=== PATIENT | female | born 2005 | race Caucasian/White ===

== ENCOUNTER 2024-08-23 17:34 | Emergency (ER) | payer OTHER ==
[~2024-08-23] VITALS: Ht 170.2 cm; Wt 90.0 kg
[2024-08-23 18:04] LABS: Basophils # (auto) 0 10 ^3/uL (0-0.2); Basophils % (auto) 0.3 % (0.0-2.0); Eosinophils # (auto) 0.1 10 ^3/uL (0-0.8); Lymphocytes # (auto) 2.1 10 ^3/uL (0.4-5.4); Mean Corpuscular Hemoglobin 24.7 pg (28.0-32.0); Monocytes # (auto) 0.5 10 ^3/uL (0-1.3); Neutrophils # (auto) 4.4 10 ^3/uL (1.6-8.6)
[2024-08-23 18:05] LABS: Eosinophils % (auto) 1.1 % (0.0-7.0); Hematocrit 35.3 % (36.0-46.0); Hemoglobin 11.5 g/dL (12.2-16.2); Lymphocytes % (auto) 29.7 % (10.0-50.0); Mean Corpuscular Hgb Conc. 32.6 g/dL (32.0-36.0); Mean Corpuscular Volume 75.8 fL (80.0-100.0); Monocytes % (auto) 6.9 % (0.0-12.0); Platelet Count (auto) 223 10^3/uL (140-450); Red Blood Cells 4.66 10^6/uL (4.0-5.20); Red Cell Distribution Width 15.5 % (11.8-14.3)
[2024-08-23 18:07] LABS: Nucleated Red Blood Cells % 0.1 %
[2024-08-23 18:14] LABS: Chloride 104 mmol/L (98-107); Potassium 3.9 mmol/L (3.5-5.1); Sodium 135 mmol/L (136-145)
[2024-08-23 18:15] LABS: Anion Gap 7 (5-15); Calcium 9.3 mg/dL (8.7-10.4); Carbon Dioxide 24 mmol/L (20-31)
[2024-08-23 18:20] LABS: BUN/Creatinine Ratio 9.9 (10.0-20.0); Blood Urea Nitrogen 7 mg/dL (9-23); Glucose 202 mg/dL (74-106)
[2024-08-23 18:42] LABS: Urine Bacteria FEW /hpf (None Seen); Urine Blood Negative /uL (Negative); Urine Clarity Clear (Clear); Urine Color Light-Yellow (Yellow); Urine Protein, UAD Negative (Negative); Urine Urobilinogen Normal (Negative); Urine WBC 4 /hpf (0 - 5); Urine pH 6.5 (5.0-9.0)
[2024-08-23 18:48] VITALS: PULSE 90; RESP 16; O2SAT 99
--- NOTE | 2024-08-23 18:59 | DVH ---
BIOPHYSICAL PROFILE HISTORY: Left nitro patch, haven't felt baby, 36 wks Comparison Study: None available at time of dictation. TECHNIQUE: Multiple real-time grayscale sonographic images through the gravid uterus of the fetus wi th duplex Doppler color flow and M-mode spectral analysis Findings/ IMPRESSION: Single intrauterine with heart rate of 144 beats per minute. presentation is ce phalic. Placenta is posterior fundal without evidence of previa or abruption. FÁTIMA is 20 cm. Sonogra pher notes breathing and movement..
[2024-08-23] MEDS: SODIUM CHLORIDE 0.9% 1,000 ML IV ONE (19:12)
[2024-08-23 20:21] VITALS: PULSE 94; RESP 14; TEMP 98.5; O2SAT 99
--- NOTE | 2024-08-23 20:21 | ED.PDOC ---
HPI Comments 18-year-old female , currently 36 weeks gestational age, presents to ED for chest pain x2 hours, associated with nausea, dizziness. Patient reports that she left her nitro patch for her blood pressure on for 20 hours instead of 12-14 hours, after which she started developing the symptoms. She also states that she feels like that she has not felt her baby move today. Patient denies any abdominal pain, vaginal bleeding, back pain, shortness of breath. No alleviating or aggravating factors. She states that she has not had any complications with her . Chief Complaint: Chest Pain Time Seen by MD: 17:50 Primary Care Provider: DIEGO Reviewed Notes: Nurses Notes, Medications, Allergies Allergies: Coded Allergies: Cephalexin (Verified Allergy, Unknown, 08/23/24) Mode of Arrival: Ambulatory Past Medical History PAST MEDICAL HISTORY: Denies Surgical History: Denies all surgeries MEDICAL BILLING ASSISTANT History: No Pertinent MEDICAL BILLING ASSISTANT History Social History Smoker: Non-Smoker Alcohol: Denies ETOH Use Drugs: Denies Drug Use Constitutional: denies: chills, diaphoresis, fatigue, fever, malaise, sweats, weakness, others EENTM: denies: blurred vision, double vision, ear bleeding, ear discharge, ear drainage, ear pain, ear ringing, eye pain, eye redness, hearing loss, mouth pain, mouth swelling, nasal discharge, nose bleeding, nose congestion, nose pain, photophobia, tearing, throat pain, throat swelling, voice changes, others Respiratory: denies: cough, hemoptysis, orthopnea, SOB at rest, shortness of breath, SOB with excertion, stridor, wheezing, others Cardiovascular: reports: chest pain, dizzy spells; denies: diaphoresis, Dyspnea on exertion, edema, irregular heart beat, left arm pain, lightheadedness, palpitations, PND, syncope, others Gastrointestinal: reports: nausea; denies: abdomen distended, abdominal pain, blood streaked bowels, constipated, diarrhea, dysphagia, difficulty swallowing, hematemesis, melena, poor appetite, poor fluid intake, rectal bleeding, rectal pain, vomiting, others Genitourinary: denies: abnormal vagina bleeding, burning, dyspareunia, dysuria, flank pain, frequency, hematuria, incontinence, pain, , vagina discharg e, urgency, others Neurological: denies: dizziness, fainting, headache, left sided numbness, left sided weakness, numbness, paresthesia, pre-existing deficit, right sided numbness, right sided weakness, seizure, speech problems, tingling, tremors, weakness, others Musculoskeletal: denies: back pain, gout, joint pain, joint swelling, muscle pain, muscle stiffness, neck pain, others Integumetry: denies: bruises, change in color, change in hair/nails, dryness, laceration, lesions, lumps, rash, wounds, others Allergic/Immunocompromised: denies: Difficulty Healing, Frequent Infections, Hives, Itching, others Hematologic/Lymphatic: denies: anemia, blood clots, easy bleeding, easy bruising, swollen glands, others Endocrine: denies: excessive hunger, excessive sweating, excessive thirst, excessive urination, flushing, intolerance to cold, intolerance to heat, unexplained weight gain, unexplained weight loss, others Psychiatric: denies: anxiety, bipolar disorder, depression, hopeless, panic d isorder, schizophrenia, sleepless, suicidal, others All Other Systems: Reviewed and Negative Physical Exam General Appearance: No Apparent Distress, Normal HEENT: Normal ENT Inspection, Pharynx Normal, TMs Normal Neck: Full Range of Motion, Non-Tender, Normal, Normal Inspection Respiratory: Chest Non-Tender, Lungs Clear, No Accessory Muscle Use, No Respiratory Distress, Normal Breath Sounds Cardiovascular: No Edema, No JVD, No Murmur, No Gallop, Normal Peripheral Pulses, Regular Rate/Rhythm Breast Exam: Deferred Gastrointestinal: No Organomegaly, Non Tender, No Pulsatile Mass, Normal Bowel Sounds, Soft Genitalia: Deferred Pelvic: Deferred Rectal: Deferred Extremities: No calf tenderness, Normal capillary refill, Normal inspection, Normal range of motion, Non-tender, No pedal edema Musculoskeletal : Apperance: Normal Neurologic: Alert, financial aid counselor II-XII nml as Tested, No Motor Deficits, Normal Affect, Normal Mood, No Sensory Deficits Cerebellar Function: Normal Reflexes: Normal Skin: Dry, Normal Color, Warm Lymphatic: No Adenopathy EKG EKG : Pulse Rate (adult): 104 [place]: Normal Cardiac Rhythm: NSR Block: None Hypertrophy: None ST: Normal Was a procedure done? Was a procedure done?: No CP Differential Dx Differential Diagnosis: PA Differential Diagnosis: Angina, Chest Wall Pain, Cholelithiasis, Costochondritis, Esophageal reflux/spasm, Gastritis, Myocardial Infarction Comment Spontaneous X-Ray, Labs, Meds, VS Vital Signs Date Time Temp Pulse Resp B/P (MAP) Pulse Ox O2 Delivery O2 Flow Rate FiO2 08/23/24 18:48 90 18 142/99 (113) 99 08/23/24 18:48 90 16 99 Room Air* 0 21 08/23/24 17:49 104 08/23/24 17:38 98.4 90 16 142/99 (113) 99 Lab Test 08/23/24 18:48 08/23/24 18:33 08/23/24 18:18 08/23/24 17:47 Range/Units Troponin I High Sensitivity < 3 L < 3 L </=34 ng/L POC Glucose 175 H 70-106 mg/dl Urine Color Light-yellow Yellow Urine Clarity Clear Clear Urine pH 6.5 5.0-9.0 Urine Specific [place] 1.020 1.001-1.035 Urine Protein Negative Negative Urine Ketones Negative Negative Urine Blood Negative Negative /uL Urine Nitrite Negative Negative Urine Bilirubin Negative Negative Urine Urobilinogen Normal Negative mg/dL Urine Leukocyte Esterase Negative Negative /uL Urine RBC 1 0 - 4 /hpf Urine WBC 4 0 - 5 /hpf Urine Squamous Epithelial Cells Few <5 /hpf Urine Bacteria Few H None Seen /hpf Urine Glucose 4+ H Normal mg/dL White Blood Count 7.0 4.4-10.8 10^3/uL Red Blood Count 4.66 4.0-5.20 10^6/uL Hemoglobin 11.5 L 12.2-16.2 g/dL Hematocrit 35.3 L 36.0-46.0 % Mean Corpuscular Volume 75.8 L 80.0-100.0 fL Mean Corpuscular Hemoglobin 24.7 L 28.0-32.0 pg Mean Corpuscular Hemoglobin Concent 32.6 32.0-36.0 g/dL Red Cell Distribution Width 15.5 H 11.8-14.3 % Platelet Count 223 140-450 10^3/uL Mean Platelet Volume 8.6 6.9-10.8 fL Neutrophils (%) (Auto) 62.0 37.0-80.0 % Lymphocytes (%) (Auto) 29.7 10.0-50.0 % Monocytes (%) (Auto) 6.9 0.0-12.0 % Eosinophils (%) (Auto) 1.1 0.0-7.0 % Basophils (%) (Auto) 0.3 0.0-2.0 % Neutrophils # (Auto) 4.4 1.6-8.6 10 ^3/uL Lymphocytes # (Auto) 2.1 0.4-5.4 10 ^3/uL Monocytes # (Auto) 0.5 0-1.3 10 ^3/uL Eosinophils # (Auto) 0.1 0-0.8 10 ^3/uL Basophils # (Auto) 0 0-0.2 10 ^3/uL Nucleated Red Blood Cells 0.1 % Sodium Level 135 L 136-145 mmol/L Potassium Level 3.9 3.5-5.1 mmol/L Chloride Level 104 98-107 mmol/L Carbon Dioxide Level 24 20-31 mmol/L Anion Gap 7 5-15 Blood Urea Nitrogen 7 L 9-23 mg/dL Creatinine 0.71 0.550-1.02 mg/dL Glomerular Filtration Rate Calc 125 >90 mL/min BUN/Creatinine Ratio 9.9 L 10.0-20.0 Serum Glucose 202 H 74-106 mg/dL Calcium Level 9.3 8.7-10.4 mg/dL Beta HCG, Quantitative 31721.0 H 1.5-4.2 mIU/mL Current Medications Medications (Trade) Dose Ordered Sig/Gris Route Start Time Stop Time Status Last Admin Sodium Chloride 1,000 ml @ 1,000 mls/hr Q1H ONCE IV 08/23/24 19:00 08/23/24 19:59 DC 08/23/24 19:12 X-Ray, Labs, Meds, VS Comment OB US IMPRESSION: Single intrauterine with heart rate of 144 beats per minute. presentation is cephalic. Placenta is posterior fundal without evidence of previa or abruption. FÁTIMA is 20 cm. Tile Machine Operator notes breathing and movement.. MDM: Patient with history as above presented with chest pain. History obtained from patient. Patient was nontoxic, stable, afebrile, ambulatory, no acute distress. Exam as above. Labs reviewed. CBC showed mild anemia with hemoglobin at 11.5 and hematocrit at 35.3. Urinalysis showed sodium at 135. Troponin x2 were negative. Beta hCG was [address]91. Urinalysis showed few urine bacteria. . Independently reviewed imaging. Ob ultrasound showed single intrauterine with heart rate at 144 beats per minute. No placenta previa or abruption. Reviewed external records. All findings were discussed with the patient. Differential diagnosis considered. Overall presentation is consistent with nonspecific chest pain. Low suspicion for PA, PE, spontaneous . Patient was treated with 1 L normal saline with improvement in symptoms. Patient has been cleared by labor and delivery nurse who did NST and BPP. Patient was reevaluated and vital signs were reviewed. Consideration was given for admission, but the patient was stable for outpatient management. No antibiotics were prescribed for asymptomatic bacteriuria as patient is allergic to Keflex and nitrofurantoin is not indicated. Patient states that she has not outpatient appointment with her OBGYN tomorrow. Disposition: Discussed the need to follow up diagnostics, including incidental findings. Discharged the patient with instructions to obtain outpatient follow up in 1-2 days of today's symptoms and findings, with strict return precautions if patient develops new or worsening symptoms. This medical document was created using the [employer] system. Although this document has been carefully reviewed, there may still be some phonetic and typographical errors, which are due to imperfections of the software program, and do not reflect any compromise in the patient's medical care. Time of 1ST Reevaluation: 20:11 Reevaluation 1ST: Improved Patient Education/Counseling: Diagnosis, Treatment, Prognosis, Need For Follow Up Family Education/Counseling: No Family Present Departure 1 Departure Time of Disposition: 20:12 Impression: Primary Impression: Chest pain Qualified Codes: R07.9 - Chest pain, unspecified Disposition: HOME / SELF CARE / HOMELESS Condition: Fair Critical Care Note Critical Care Time?: No Stability Stability form required: No Heart Score Heart Score: Heart Score Response (Comments) Value History N/A 0 EKG N/A 0 Age N/A 0 Risk Factors N/A 0 Troponin N/A 0 Total 0 LOPEZ MONTOYA PAC Aug 23, 2024 20:21
[2024-08-23] MEDS: ONDANSETRON ODT 4 MG TAB PO ONE (20:59)
[2024-08-23 21:00] VITALS: BP 109/63; PULSE 91; RESP 13; O2SAT 96
--- NOTE | 2024-08-24 10:54 | ECG ---
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
== END 2024-08-23 20:21 | disposition home or self-care (01) ==
LOC: ER 17:34
DX: O26.893 Other specified pregnancy related conditions, third trimester (principal); R10.2 Pelvic and perineal pain; O26.891 Other specified pregnancy related conditions, first trimester; R07.89 Other chest pain; Z88.5 Allergy status to narcotic agent; Z3A.36 36 weeks gestation of pregnancy
CPT/HCPCS: 36415; 76815; 80048; 81001; 82962; 84484; 84702; 85025; 93005; 96360; 99285; J7030; Q0162

== ENCOUNTER 2024-09-06 13:52 | Inpatient (IN) | payer OTHER ==
[~2024-09-06] VITALS: Ht 170.2 cm; Wt 88.9 kg
[2024-09-06] MEDS: SODIUM CHLORIDE 0.9% 1,000 ML IV ONE ×2 (14:00→15:23)
--- NOTE | 2024-09-06 14:07 | ECG ---
[facility] Test Date: 2024-09-06 Test Time: 14:05:26 Pat Name: MICHELINE COX Department: ED Room: Gender: F Vp Informatics: : 2005 Requested By: FANNY BECKER Order Number: [id number] Reading MD: Measurements Intervals [place] Rate: 124 P: 93 [place]: 138 QRS: 126 QRSD: 98 T: 72 QT: 311 QTc: 447 Interpretive Statements Sinus tachycardia Right axis deviation Please click the below link to view image of tracing.
[2024-09-06 14:20] VITALS: PULSE 106; RESP 21; O2SAT 95
[2024-09-06] MEDS: LORazepam 2MG/ML-1ML VIAL IV ONE ×2 (14:25→16:20)
[2024-09-06] MEDS: LORazepam 2MG/ML-1ML VIAL ONE ×2 (14:36→16:20)
[2024-09-06 14:41] LABS: Basophils # (auto) 0 10 ^3/uL (0-0.2); Eosinophils # (auto) 0.1 10 ^3/uL (0-0.8); Hematocrit 34.3 % (36.0-46.0); Lymphocytes # (auto) 0.9 10 ^3/uL (0.4-5.4); Mean Corpuscular Hemoglobin 24.7 pg (28.0-32.0); Monocytes # (auto) 0.4 10 ^3/uL (0-1.3); Neutrophils # (auto) 7.5 10 ^3/uL (1.6-8.6); Red Cell Distribution Width 16.3 % (11.8-14.3); White Blood Cell 8.9 10^3/uL (4.4-10.8)
[2024-09-06] MEDS: LABETALOL HCL 20 MG/4 ML VL IV ONE ×2 (14:41→15:23)
[2024-09-06 14:43] LABS: Basophils % (auto) 0.1 % (0.0-2.0); Eosinophils % (auto) 1.1 % (0.0-7.0); Hemoglobin 11.3 g/dL (12.2-16.2); Lymphocytes % (auto) 10.3 % (10.0-50.0); Mean Corpuscular Hgb Conc. 32.8 g/dL (32.0-36.0); Mean Corpuscular Volume 75.4 fL (80.0-100.0); Monocytes % (auto) 4.9 % (0.0-12.0); Neutrophils % (auto) 83.6 % (37.0-80.0); Platelet Count (auto) 211 10^3/uL (140-450); Red Blood Cells 4.55 10^6/uL (4.0-5.20)
[2024-09-06 14:46] LABS: Chloride 108 mmol/L (98-107); Potassium 4.2 mmol/L (3.5-5.1); Sodium 141 mmol/L (136-145)
[2024-09-06 14:47] LABS: Anion Gap 16 (5-15); Carbon Dioxide 17 mmol/L (20-31)
--- NOTE | 2024-09-06 14:49 | ED.PDOC ---
History of Present Illness HPI Comments 18Y F presents to ED via EMS s/p seizure. Pt had seizure that was witnessed by friend and EMS. Pt gave 4 days ago and was discharged yesterday from [facility]. Per EMS, pt had HTN during . Pt also has DM but does not take any medications. Upon ED arrival, O2sat was 90% on RA. Allergies include Cephalexin. Patient was initially postictal, however subsequently was alert and conversant, however this was prior to my evaluation. Patient had a 2nd witnessed seizure shortly after arrival in the ED, resolved with IV Ativan. Patient was subsequently postictal, so no additional history is currently available. Chief Complaint: Seizure Time Seen by MD: 14:25 Primary Care Provider: DIEGO Reviewed Notes: Medications, Allergies Allergies: Coded Allergies: Cephalexin (Verified Allergy, Unknown, 08/23/24) Information Source: Patient, Emergency Med Personnel, [facility] Medical Record Mode of Arrival: EMS Severity: Moderate Timing: Hours Duration: Since onset Prehospital treatment: 12 Lead EKG Past Medical History PAST MEDICAL HISTORY: DM, HTN Surgical History: Denies all surgeries STAFF DEVELOPMENT EDUCATOR History: No Pertinent STAFF DEVELOPMENT EDUCATOR History Family History Family History: Unknown Social History Smoker: Non-Smoker Alcohol: Denies ETOH Use Drugs: Denies Drug Use Lives In: Home Constitutional: denies: chills, diaphoresis, fatigue, fever, malaise, sweats, weakness, others EENTM: denies: blurred vision, double vision, ear bleeding, ear discharge, ear drainage, ear pain, ear ringing, eye pain, eye redness, hearing loss, mouth pain, mouth swelling, nasal discharge, nose bleeding, nose congestion, nose pain, photophobia, tearing, throat pain, throat swelling, voice changes, others Respiratory: denies: cough, hemoptysis, orthopnea, SOB at rest, shortness of breath, SOB with excertion, stridor, wheezing, others Cardiovascular: denies: chest pain, dizzy spells, diaphoresis, Dyspnea on exertion, edema, irregular heart beat, left arm pain, lightheadedness, palpitations, PND, syncope, others Gastrointestinal: denies: abdomen distended, abdominal pain, blood streaked bowels, constipated, diarrhea, dysphagia, difficulty swallowing, hematemesis, melena, nausea, poor appetite, poor fluid intake, rectal bleeding, rectal pain, vomiting, others Genitourinary: denies: abnormal vagina bleeding, burning, dyspareunia, dysuria, flank pain, frequency, hematuria, incontinence, pain, , vagina discharge, urgency, others Neurological: denies: dizziness, fainting, headache, left sided numbness, left sided weakness, numbness, paresthesia, pre-existing deficit, right sided numbness, right sided weakness, seizure, speech problems, tingling, tremors, weakness, others Musculoskeletal: denies: back pain, gout, joint pain, joint swelling, muscle pa in, muscle stiffness, neck pain, others Integumetry: denies: bruises, change in color, change in hair/nails, dryness, laceration, lesions, lumps, rash, wounds, others Allergic/Immunocompromised: denies: Difficulty Healing, Frequent Infections, Hives, Itching, others Hematologic/Lymphatic: denies: anemia, blood clots, easy bleeding, easy bruising, swollen glands, others Endocrine: denies: excessive hunger, excessive sweating, excessive thirst, excessive urination, flushing, intolerance to cold, intolerance to heat, unexplained weight gain, unexplained weight loss, others Psychiatric: denies: anxiety, bipolar disorder, depression, hopeless, panic disorder, schizophrenia, sleepless, suicidal, others All Other Systems: Reviewed and Negative Physical Exam General Appearance: No Apparent Distress HEENT: PERRL/EOMI Neck: Full Range of Motion, Non-Tender, Normal Inspection, Supple Respiratory: Lungs Clear, No Respiratory Distress, Normal Breath Sounds Cardiovascular: No Edema, No JVD, Tachycardia Breast Exam: Deferred Gastrointestinal: Non Tender, Soft Genitalia: Deferred Pelvic: Deferred Rectal: Deferred Extremities: Normal inspection, Normal range of motion, Non-tender, No pedal edema Neurologic: Other (Postictal. Moves all extremities. No facial asymmetry. No gross focal deficit.) Cerebellar Function: Unable to Test Reflexes: NOT DONE Skin: Dry, Normal Color, Warm Lymphatic: NOT DONE Was a procedure done? Was a procedure done?: No EKG EKG : Comments Sinus tach, rate 124, normal intervals, right axis deviation, normal QRS, nonspecific T changes Differential Dx Considerations may include: New onset seizure, hypoxia, hypoglycemia, CVA, TIA, intracranial hemorrhage, mass lesion, eclampsia, PE, arrhythmia, among others. X-Ray, Labs, Meds, VS Vital Signs Date Time Temp Pulse Resp B/P (MAP) Pulse Ox O2 Delivery O2 Flow Rate FiO2 09/06/24 16:30 116 26 159/90 (113) 99 09/06/24 16:06 194/117 09/06/24 16:03 12 26 194/117 (142) 97 09/06/24 15:30 105 25 179/110 (133) 97 09/06/24 15:23 96 176/107 09/06/24 15:21 107 25 176/107 (130) 97 09/06/24 15:07 99 32 169/101 (123) 87 09/06/24 14:41 116 173/84 09/06/24 14:30 111 37 173/94 (120) 87 09/06/24 14:20 106 21 95 Nasal Cannula* 3 32 09/06/24 14:18 126 21 171/97 (121) 91 09/06/24 14:05 124 09/06/24 13:58 99.2 108 16 161/98 (119) 98 Lab Test 09/06/24 15:43 09/06/24 14:22 Range/Units Troponin I High Sensitivity 55 *H 40 *H </=34 ng/L White Blood Count 8.9 4.4-10.8 10^3/uL Red Blood Count 4.55 4.0-5.20 10^6/uL Hemoglobin 11.3 L 12.2-16.2 g/dL Hematocrit 34.3 L 36.0-46.0 % Mean Corpuscular Volume 75.4 L 80.0-100.0 fL Mean Corpuscular Hemoglobin 24.7 L 28.0-32.0 pg Mean Corpuscular Hemoglobin Concent 32.8 32.0-36.0 g/dL Red Cell Distribution Width 16.3 H 11.8-14.3 % Platelet Count 211 140-450 10^3/uL Mean Platelet Volume 8.1 6.9-10.8 fL Neutrophils (%) (Auto) 83.6 H 37.0-80.0 % Lymphocytes (%) (Auto) 10.3 10.0-50.0 % Monocytes (%) (Auto) 4.9 0.0-12.0 % Eosinophils (%) (Auto) 1.1 0.0-7.0 % Basophils (%) (Auto) 0.1 0.0-2.0 % Neutrophils # (Auto) 7.5 1.6-8.6 10 ^3/uL Lymphocytes # (Auto) 0.9 0.4-5.4 10 ^3/uL Monocytes # (Auto) 0.4 0-1.3 10 ^3/uL Eosinophils # (Auto) 0.1 0-0.8 10 ^3/uL Basophils # (Auto) 0 0-0.2 10 ^3/uL Nucleated Red Blood Cells 0.0 % Sodium Level 141 136-145 mmol/L Potassium Level 4.2 3.5-5.1 mmol/L Chloride Level 108 H 98-107 mmol/L Carbon Dioxide Level 17 L 20-31 mmol/L Anion Gap 16 H 5-15 Blood Urea Nitrogen 15 9-23 mg/dL Creatinine 1.74 H 0.550-1.02 mg/dL Glomerular Filtration Rate Calc 43 >90 mL/min BUN/Creatinine Ratio 8.6 L 10.0-20.0 Serum Glucose 239 H 74-106 mg/dL Calcium Level 9.0 8.7-10.4 mg/dL Magnesium Level 2.2 1.6-2.6 mg/dL Total Bilirubin 0.4 0.2-1.0 mg/dL Direct Bilirubin 0.1 <0.3 mg/dL Aspartate Amino Transferase (AST) 18 13-40 U/L Alanine Aminotransferase (ALT) 14 7-40 U/L Alkaline Phosphatase 188 H 46-116 U/L Lactate Dehydrogenase 262 H 120-246 U/L B-Type Natriuretic Peptide 474.73 0-100 pg/mL Total Protein 6.1 5.7-8.2 g/dL Albumin 3.4 3.2-4.8 g/dL Current Medications Medications (Trade) Dose Ordered Sig/Gris Route Start Time Stop Time Status Last Admin Sodium Chloride 1,000 ml @ 1,000 mls/hr Q1H ONCE IV 09/06/24 14:00 09/06/24 14:59 DC 09/06/24 15:23 Labetalol HCl (Labetalol HCl) 5 mg ONCE ONCE IV 09/06/24 14:45 09/06/24 14:46 DC 09/06/24 14:41 Lorazepam (Ativan Inj) 2 mg ONCE ONCE IV 09/06/24 14:45 09/06/24 14:46 DC 11/17/24 14:25 Labetalol HCl (Labetalol HCl) 10 mg ONCE ONCE IV 09/06/24 15:15 09/06/24 15:16 DC 09/06/24 15:23 Levetiracetam 100 ml @ 400 mls/hr ONCE ONCE IV 09/06/24 15:30 09/06/24 15:56 DC 09/06/24 16:10 Hydralazine HCl (Apresoline Injection) 10 mg ONCE ONCE IV 09/06/24 16:00 09/06/24 16:02 DC 09/06/24 16:06 Lorazepam (Ativan Inj) 2 mg ONCE ONCE IV 09/06/24 16:00 09/06/24 16:02 DC 09/06/24 16:20 Magnesium Sulfate/ Dextrose 100 ml @ 100 mls/hr Q1H IV 09/06/24 16:15 09/06/24 20:14 09/06/24 17:32 PROCEDURE(s): HWOCT - HEAD WITHOUT CONTRAST REASON: seizure ORDER NUMBER(s): [id number], ACCESSION NUMBER(s): [id number] EXAM: CT HEAD WITHOUT CONTRAST INDICATION: seizure TECHNIQUE: CT of the head without intravenous contrast. Radiation Dose Information: CT Dose: CTDI volume is 32.53 mGy. Dose-length product is 2499.78 mGy*cm The dose indicators for CT are the volume Computed Tomography (CT) Dose Index (CTDIvol) and the Dose Length Product (DLP), and are measured in units of mGy and mGy-cm, respectively. These indicators are not patient dose, but values generated from the CT scanner acquisition factors. The report includes radiation exposure data for exposures received during this examination. COMPARISON: None FINDINGS: There is no evidence of acute intracranial hemorrhage, extra-axial collection, mass effect, midline shift, herniation or hydrocephalus. The ventricles, sulci and cisterns are age appropriate. The nciole-white differentiation is intact. Patchy periventricular and subcortical white matter hypoattenuation is nonspecific but may be related to small vessel ischemic disease. The visualized paranasal sinuses and mastoid air cells are clear. The surrounding soft tissues and osseous structures are unremarkable. IMPRESSION: 1. No acute intracranial hemorrhage. 2. No findings of intracranial mass. 3. No territorial ischemia. EDURE(s): CTACH - CT ANGIO CHEST CONTRAST REASON: r/o PE ORDER NUMBER(s): [id number], ACCESSION NUMBER(s): [id number] INDICATION: r/o PE COMPARISON: NO PRIOR CTAS OF THE CHEST. TECHNIQUE: Multidetector CTA of the chest was performed of the chest with 100 cc of intravenous contrast. PULMONARY ANGIOGRAPHY PROTOCOL was utilized using a bolus-tracking technique centered on the main pulmonary artery. Axial, coronal and sagittal multiplanar and MIP reformats were performed. Radiation Dose Information: CT Dose: CTDI volume is 25.81 mGy. Dose-length product is 2499.78 mGy*cm IV contrast use however type and amount given not indicated. The dose indicators for CT are the volume Computed Tomography (CT) Dose Index (CTDIvol) and the Dose Length Product (DLP), and are measured in units of mGy and mGy-cm, respectively. These indicators are not patient dose, but values generated from the CT scanner acquisition factors. The report includes radiation exposure data for exposures received during this examination. Findings: Suboptimal opacification of pulmonary artery. There are no large filling defects in the main pulmonary artery or left or right pulmonary arteries and no saddle embolus seen. Lower neck: Normal thyroid. Lungs: Small bilateral pleural effusions. Airspace disease posterior costophrenic angle on the left Heart/Vascular Structures: Normal heart size. Normal caliber and enhancement of the aorta. Lymph Nodes: No adenopathy Pleura: No pleural effusion or significant pneumothorax. Musculoskeletal: No acute osseous abnormality. Upper abdomen: Limited portions of the upper abdomen are unremarkable. IMPRESSION: 1. No pulmonary embolism. 2.. No findings to suggest pulmonary artery hypertension. 3. Suboptimal opacification of pulmonary arteries. 4. Airspace disease left posterior costophrenic angle. 5. Small bilateral pleural effusions 2. No acute intrathoracic abnormality. EDURE(s): CS2 - CERVICAL WITHOUT CONTRAST REASON: SEIZURE ORDER NUMBER(s): [id number], ACCESSION NUMBER(s): [id number] EXAM: CT CERVICAL WITHOUT CONTRAST INDICATION: SEIZURE EXAM DATE: 09/06/2024 02:52 PM COMPARISON: None TECHNIQUE: Multiple axial CT images of the cervical spine were obtained using bone algorithm. Axial and coronal reformatting was done. Bone and soft tissue windows were reviewed. Radiation Dose Information: CT Dose: CTDI volume is 26 mGy. Dose-length product is 2500 mGy*cm FINDINGS: The cervical alignment is intact. No acute cervical spine fracture is identified. The vertebral body heights are intact. No suspicious osseous lesions are identified. No significant degenerative changes are identified. There is no prevertebral soft tissue swelling. IMPRESSION: 1. No evidence of acute cervical spine fracture or traumatic malalignment. 2. All CT scans at this medical facility are performed using dose modulation techniques as appropriate to a performed exam including the following: Automated exposure control was utilized; adjustment of the MA and/or KV according to patient size; and use of iterative reconstruction technique. X-Ray, Labs, Meds, VS Comment 18-year-old female with a history of -induced hypertension and diabetes status post 4 days ago presenting with multiple seizures Vitals remarkable for heart rate 108, BP 161/98, oxygen saturation 91% on room air Exam remarkable for tachycardia and postictal state EKG sinus tach, right axis deviation, nonspecific T changes CT head remarkable CT C-spine CTA chest IMPRESSION: 1. No pulmonary embolism. 2.. No findings to suggest pulmonary artery hypertension. 3. Suboptimal opacification of pulmonary arteries. 4. Airspace disease left posterior costophrenic angle. 5. Small bilateral pleural effusions 2. No acute intrathoracic abnormality. CBC unremarkable, basic metabolic panel remarkable for CO2 17, creatinine 1.74, glucose 239 Troponin 40 UA, urine drug screen and BNP pending Patient treated with the following in the ED: Placed on seizure precautions, 1L 0.9 normal saline IV bolus, Ativan 2 mg IV for witnessed seizure, labetalol 5 mg IV for hypertension, labetalol 10 mg IV for persistent hypertension, Keppra 1 g IV On re-evaluation patient is somnolent but arousable. Heart rate is 116, blood pressure 173/84, oxygen saturation 95% on 3 L nasal cannula Plan is to admit the patient for blood pressure and seizure control, airline security representative and Cardiology evaluations. Case discussed with Dr. Aranda, who will consult. Agreed with current treatment, requested adding LFTs, urine creatinine ratio and LDH. Discussed with Dr. Estevez, who will provide Cardiology consult. No new intervention at this time. Time of 1ST Reevaluation: 14:55 Reevaluation 1ST: Unchanged Time of 2ND Reevaluation: 15:24 Reevaluation 2ND: Improved Patient Education/Counseling: Diagnosis, Treatment Family Education/Counseling: No Family Present Departure 1 Departure Time of Disposition: 15:24 Impression: Primary Impression: Elevated troponin Additional Impression: Eclampsia added to pre-existing hypertension Disposition: 09 ADMITTED INPATIENT Admit to: ICU Condition: Guarded Critical Care Note Critical Care Time?: Yes (35 min-critical care time only) Critical care comment: critical care time including multiple bedside re-evaluations, review of lab and imaging studies, and discussion of the case with the admitting provider. Patient is high risk for hemodynamic, neurologic and/or respiratory decompensation. Stability Stability form required: No Heart Score Heart Score: Heart Score Response (Comments) Value History N/A 0 EKG N/A 0 Age N/A 0 Risk Factors N/A 0 Troponin N/A 0 Total 0 I personally scribed for FANNY LOYD MD ([email or web address]) on 09/06/24 at 14:49. Electronically submitted by Jeanne Denton ([employer]). I personally scribed for FANNY LOYD MD ([email or web address]) on 09/06/24 at 16:05. Electronically submitted by Jeanne Denton ([employer]). FANNY LOYD MD Sep 06, 2024 14:49
[2024-09-06 14:52] LABS: BUN/Creatinine Ratio 8.6 (10.0-20.0); Blood Urea Nitrogen 15 mg/dL (9-23); Glucose 239 mg/dL (74-106)
[2024-09-06] MEDS: IOHEXOL 350 MG/ML 100ML IJ ONE (15:21)
--- NOTE | 2024-09-06 15:24 | [facility] ---
EXAM: CT HEAD WITHOUT CONTRAST INDICATION: seizure TECHNIQUE: CT of the head without intravenous contrast. Radiation Dose Information: CT Dose: CTDI volume is 32.53 mGy. Dose-length product is 2499.78 mGy*cm The dose indicators for CT are the volume Computed Tomography (CT) Dose Index (CTDIvol) and the Dose Length Product (DLP), and are measured in units of mGy and mGy-cm, respectively. These indicators are not patient dose, but values generated from the CT scanner acquisition factors. The report includes radiation exposure data for exposures received during this examination. COMPARISON: None FINDINGS: There is no evidence of acute intracranial hemorrhage, extra-axial collection, mass effect, midline s hift, herniation or hydrocephalus. The ventricles, sulci and cisterns are age appropriate. The nicole-white differentiation is intact. Patchy periventricular and subcortical white matter hypoattenuation is nonspecific but may be related to small vessel ischemic disease. The visualized paranasal sinuses and mastoid air cells are clear. The surrounding soft tissues and osseous structures are unremarkable. IMPRESSION: 1. No acute intracranial hemorrhage. 2. No findings of intracranial mass. 3. No territorial ischemia.
--- NOTE | 2024-09-06 15:34 | [facility] ---
INDICATION: r/o PE COMPARISON: NO PRIOR CTAS OF THE CHEST. TECHNIQUE: Multidetector CTA of the chest was performed of the chest with 100 cc of intravenous contr ast. PULMONARY ANGIOGRAPHY PROTOCOL was utilized using a bolus-tracking technique centered on the alena n pulmonary artery. Axial, coronal and sagittal multiplanar and MIP reformats were performed. Radiation Dose Information: CT Dose: CTDI volume is 25.81 mGy. Dose-length product is 2499.78 mGy*cm IV contrast use however type and amount given not indicated. The dose indicators for CT are the volume Computed Tomography (CT) Dose Index (CTDIvol) and the Dose Length Product (DLP), and are measured in units of mGy and mGy-cm, respectively. These indicators are not patient dose, but values generated from the CT scanner acquisition factors. The report includes radiation exposure data for exposures received during this examination. Findings: Suboptimal opacification of pulmonary artery. There are no large filling defects in the main pulmonar y artery or left or right pulmonary arteries and no saddle embolus seen. Lower neck: Normal thyroid. Lungs: Small bilateral pleural effusions. Airspace disease posterior costophrenic angle on the left Heart/Vascular Structures: Normal heart size. Normal caliber and enhancement of the aorta. Lymph Nodes: No adenopathy Pleura: No pleural effusion or significant pneumothorax. Musculoskeletal: No acute osseous abnormality. Upper abdomen: Limited portions of the upper abdomen are unremarkable. IMPRESSION: 1. No pulmonary embolism. 2.. No findings to suggest pulmonary artery hypertension. 3. Suboptimal opacification of pulmonary arteries. 4. Airspace disease left posterior costophrenic angle. 5. Small bilateral pleural effusions 2. No acute intrathoracic abnormality.
--- NOTE | 2024-09-06 15:54 | [facility] ---
EXAM: CT CERVICAL WITHOUT CONTRAST INDICATION: SEIZURE EXAM DATE: 09/06/2024 02:52 PM COMPARISON: None TECHNIQUE: Multiple axial CT images of the cervical spine were obtained using bone algorithm. Axial a nd coronal reformatting was done. Bone and soft tissue windows were reviewed. Radiation Dose Information: CT Dose: CTDI volume is 26 mGy. Dose-length product is 2500 mGy*cm FINDINGS: The cervical alignment is intact. No acute cervical spine fracture is identified. The vertebral body heights are intact. No suspicious osseous lesions are identified. No significant degenerative changes are identified. There is no prevertebral soft tissue swelling. IMPRESSION: 1. No evidence of acute cervical spine fracture or traumatic malalignment. 2. All CT scans at this medical facility are performed using dose modulation techniques as appropriat e to a performed exam including the following: Automated exposure control was utilized; adjustment of the MA and/or KV according to patient size; and use of iterative reconstruction technique.
[2024-09-06] MEDS ORDERED: MAGNESIUM SULFATE 1GM/100ML 100 ML IV SCH (16:00)
[2024-09-06] MEDS: hydrALAZINE HCL 20 MG/ML VL IV ONE ×2 (16:06→20:03)
[2024-09-06] MEDS: levETIRAcetam 1000 mg/100ml 100 ML IV ONE (16:10)
[2024-09-06] MEDS: MAGNESIUM SULFATE 1GM/100ML 100 ML IV SCH (16:15)
[2024-09-06 16:41] LABS: Albumin 3.4 g/dL (3.2-4.8); Bilirubin, Direct 0.1 mg/dL (<0.3); Bilirubin, Total 0.4 mg/dL (0.2-1.0); Magnesium 2.2 mg/dL (1.6-2.6); Total Protein 6.1 g/dL (5.7-8.2)
[2024-09-06 19:30] VITALS: PULSE 121; RESP 21; O2SAT 95
[2024-09-06 21:11] LABS: Urine Bacteria None Seen /hpf (None Seen)
[2024-09-06 21:22] LABS: Urine Blood Negative /uL (Negative); Urine Clarity Clear (Clear); Urine Color Colorless (Yellow); Urine Protein, UAD TRACE (Negative); Urine Urobilinogen Normal (Negative); Urine WBC <1 /hpf (0 - 5); Urine pH 5.5 (5.0-9.0)
[2024-09-06 21:27] LABS: Protein, Urine 44.3 mg/dL (1-14)
[2024-09-06 21:30] LABS: Creatinine, Urine 34.4 mg/dL (30.0-125.0); Urine Protein/Creatinine Ratio 1.29
[2024-09-06] MEDS ORDERED: ONDANSETRON HCL 4 MG/2 ML VIAL IV PRN (22:00)
[2024-09-06] MEDS ORDERED: NITROGLYCERIN 0.4 MG SL TAB SL PRN (22:00)
[2024-09-06] MEDS ORDERED: LORazepam 2MG/ML-1ML VIAL IV PRN (22:00)
[2024-09-06] MEDS ORDERED: MORPHINE SULFATE INJ 2 MG/ml SYRG IV PRN (22:00)
[2024-09-07 04:18] LABS: Basophils # (auto) 0 10 ^3/uL (0-0.2); Basophils % (auto) 0.2 % (0.0-2.0); Eosinophils # (auto) 0.1 10 ^3/uL (0-0.8); Hemoglobin 10.2 g/dL (12.2-16.2); Lymphocytes # (auto) 1.1 10 ^3/uL (0.4-5.4); Monocytes # (auto) 0.5 10 ^3/uL (0-1.3); Neutrophils # (auto) 5.6 10 ^3/uL (1.6-8.6); White Blood Cell 7.3 10^3/uL (4.4-10.8)
[2024-09-07 04:20] LABS: Eosinophils % (auto) 1.3 % (0.0-7.0); Hematocrit 30.8 % (36.0-46.0); Mean Corpuscular Hemoglobin 24.9 pg (28.0-32.0); Mean Corpuscular Hgb Conc. 33.3 g/dL (32.0-36.0); Monocytes % (auto) 7.2 % (0.0-12.0); Neutrophils % (auto) 76.3 % (37.0-80.0); Nucleated Red Blood Cells % 0.1 %; Platelet Count (auto) 184 10^3/uL (140-450); Red Blood Cells 4.11 10^6/uL (4.0-5.20); Red Cell Distribution Width 16.5 % (11.8-14.3)
[2024-09-07 04:39] LABS: Alanine Aminotransferase 10 U/L (7-40); Albumin 2.9 g/dL (3.2-4.8); Alkaline Phosphatase 140 U/L (46-116); Anion Gap 9 (5-15); Aspartate Aminotransferase 16 U/L (13-40); Bilirubin, Total 0.5 mg/dL (0.2-1.0); Blood Urea Nitrogen 10 mg/dL (9-23); Calcium 8.1 mg/dL (8.7-10.4); Carbon Dioxide 21 mmol/L (20-31); Chloride 111 mmol/L (98-107); Glucose 165 mg/dL (74-106); Potassium 3.5 mmol/L (3.5-5.1); Sodium 141 mmol/L (136-145)
--- NOTE | 2024-09-07 05:55 | DVHINCON2 ---
Date of service: Sep 07, 2024 Reason for Consultation Seizure History of Present Illness HPI 18y s/p at 38 wk, delivered at outside hospital approx 4 days ago Patient had hypertension the last week of her and was induced. Was not discharged on any HTN meds. 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 Presented to ER with acute seizure, convulsion and postictal confusion. c/o SOB Head CT neg, CTA neg for PE Patient admitted with elevated BP, now controlled with Labetalol and hydralazine. Denies chest pain, headache or scotomata Denies epigastric pain Past Medical History Cardiac: No pertinent Hx Pulmonary: No pertinent Hx Central Nervous System: No pertinent Hx GI: No pertinent Hx Hemotology/Oncology: No pertinent Hx Hepatobiliary: No pertinent Hx Psychiatric: No pertinent Hx Musculoskeletal: No pertinent Hx Rheumotologic: No pertinent Hx Infectious Disease: No peritnent Hx ENT: No pertinent Hx Renal/: No pertinent Hx Endocrine: IDDM Dermatology: No pertinent Hx Past Surgical History: No pertinent Hx Smoker: No Hx (Negative) Alocohol: None Drugs: None Lives with: With family Domestic Violence: Neg Review of Systems Constitutional: No symptom reported Ears, Nose, & Throat: No symptom reported Eyes: No symptom reported Pulmonary/Respiratory: Dyspnea Cardiovascular: Edema Gastrointestinal: No symptom reported Genitourinary: No symptom reported Musculoskeletal: No symptom reported Skin: No symptom reported Psychiatric: No symptom reported Endocrine: No symptom reported Hemotologic/Lymphatic: No symptom reported All Other Systems Neuro: Headache (now resolved) and seizure H&P Exam Vital Signs Vital Signs Date Time Temp Pulse Resp B/P (MAP) Pulse Ox O2 Delivery O2 Flow Rate FiO2 09/07/24 05:00 112 24 136/87 (103) 97 09/06/24 23:00 99.6 99.6 09/06/24 19:30 Nasal Cannula* 4 36 General Appeara: Well developed, Well nourished, Normal Appearance Head Exam: Normal inspection Neck Exam: Normal inspection Eye Exam: bilateral eye PERRL Abdominal Exam: Normal bowel sounds, Soft, No tenderness Rectal Exam: Deferred Pelvic Exam: Not done Legs: bilateral leg non-tender Tendon/ Neuro: Normal sensation, Normal motor function 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 Exam: Normal hearing, Normal speech, Other (DTR 3/4, no clonus) DTR Exam: 3+ Knee (R), 3+ Knee (L) Neuro/Mental St: Alert, Oriented Appearance: Appropriate appearance, Appropriate insight Thoughts/Psych: Normal thought pattern Labs/Xrays Labs Test 09/07/24 03:48 09/06/24 21:01 09/06/24 15:43 09/06/24 14:22 Range/Units White Blood Count 7.3 4.4-10.8 10^3/uL Red Blood Count 4.11 4.0-5.20 10^6/uL Hemoglobin 10.2 L 12.2-16.2 g/dL Hematocrit 30.8 #L 36.0-46.0 % Mean Corpuscular Volume 75.0 L 80.0-100.0 fL Mean Corpuscular Hemoglobin 24.9 L 28.0-32.0 pg Mean Corpuscular Hemoglobin Concent 33.3 32.0-36.0 g/dL Red Cell Distribution Width 16.5 H 11.8-14.3 % Platelet Count 184 140-450 10^3/uL Mean Platelet Volume 8.2 6.9-10.8 fL Neutrophils (%) (Auto) 76.3 37.0-80.0 % Lymphocytes (%) (Auto) 15.0 10.0-50.0 % Monocytes (%) (Auto) 7.2 0.0-12.0 % Eosinophils (%) (Auto) 1.3 0.0-7.0 % Basophils (%) (Auto) 0.2 0.0-2.0 % Neutrophils # (Auto) 5.6 1.6-8.6 10 ^3/uL Lymphocytes # (Auto) 1.1 0.4-5.4 10 ^3/uL Monocytes # (Auto) 0.5 0-1.3 10 ^3/uL Eosinophils # (Auto) 0.1 0-0.8 10 ^3/uL Basophils # (Auto) 0 0-0.2 10 ^3/uL Nucleated Red Blood Cells 0.1 % Sodium Level 141 136-145 mmol/L Potassium Level 3.5 3.5-5.1 mmol/L Chloride Level 111 H 98-107 mmol/L Carbon Dioxide Level 21 20-31 mmol/L Anion Gap 9 5-15 Blood Urea Nitrogen 10 9-23 mg/dL Creatinine 1.43 H 0.550-1.02 mg/dL Glomerular Filtration Rate Calc 54 >90 mL/min BUN/Creatinine Ratio 7.0 L 10.0-20.0 Serum Glucose 165 H 74-106 mg/dL Calcium Level 8.1 L 8.7-10.4 mg/dL Total Bilirubin 0.5 0.2-1.0 mg/dL Aspartate Amino Transferase (AST) 16 13-40 U/L Alanine Aminotransferase (ALT) 10 7-40 U/L Alkaline Phosphatase 140 H 46-116 U/L Total Protein 5.0 L 5.7-8.2 g/dL Albumin 2.9 L 3.2-4.8 g/dL Urine Color Colorless Yellow Urine Clarity Clear Clear Urine pH 5.5 5.0-9.0 Urine Specific [place] 1.010 1.001-1.035 Urine Protein Trace H Negative Urine Ketones Negative Negative Urine Blood Negative Negative /uL Urine Nitrite Negative Negative Urine Bilirubin Negative Negative Urine Urobilinogen Normal Negative mg/dL Urine Leukocyte Esterase Negative Negative /uL Urine RBC <1 0 - 4 /hpf Urine WBC <1 0 - 5 /hpf Urine Squamous Epithelial Cells None seen <5 /hpf Urine Bacteria None seen None Seen /hpf Urine Creatinine 34.40 30.0-125.0 mg/dL Urine Protein/Creatinine Ratio 1.29 Urine Glucose 4+ H Normal mg/dL Urine Total Protein 44.3 H 1-14 mg/dL Troponin I High Sensitivity 55 *H </=34 ng/L Magnesium Level 2.2 1.6-2.6 mg/dL Direct Bilirubin 0.1 <0.3 mg/dL Lactate Dehydrogenase 262 H 120-246 U/L B-Type Natriuretic Peptide 474.73 0-100 pg/mL Assessment/Plan Admitting Diagnosis: s/p Eclamptic seizure HTN urgency Elevated serum creatinine Elevated BNP and Troponins Pre existing IDDM (type 1) Plan Recommend start Magnesium Sulfate drip 1gm/hr, keep Mag levels range 4-7 (therapeutic range) x 24hrs Monitor urine output Agree w/ plan to control BP w/ Labetalol and hydralazine as needed No evidence of HELLP syndrome Recommend Cardiology consult due to elevated troponin and BNP, recommend maternal 2D Cardiac Echo r/o peripartum cardiomyopathy 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 Repeat CBC/CMP tomorrow in a.m. Plan discussed with: Patient Date of Service: Sep 07, 2024 Billing Provider: SARI BAILON DO Common Visit Codes: CONSULT ONLY Consultation Codes: [id number] CONSULT <60MIN SARI BAILON DO Sep 07, 2024 05:55
[2024-09-07] MEDS: MAGNESIUM SULFATE 40MG/ML 1,000 ML IV ONE (06:25)
[2024-09-07] MEDS: MAGNESIUM SULFATE 40MG/ML 1,000 ML IV SCH (06:28)
[2024-09-07] MEDS ORDERED: DEXTROSE (50%) 50ML SYRG IV PRN (06:30)
--- NOTE | 2024-09-07 06:35 | DVHHP2 ---
History of Present Illness Reason for Visit: Seizure History of Present Illness 18-year-old female presents for evaluation of a witnessed seizure. Patient currently had a normal delivery four days ago and was discharged yesterday. Patient reportedly had hypertension during her as well as diabetes mellitus. Patient had two witnessed seizures in the emergency department with postictal periods. Currently lethargic but arousable. Denies headache or blurred vision. No oral trauma. No other acute complaints reported. Past Medical History Diabetes mellitus and hypertension Past Surgical History None Family History Noncontributory Smoke: No ALCOHOL: none Drugs: None Lives: with Family Review of Systems Review of Systems Review of systems are currently negative otherwise addressed in HPI. Allergies: Coded Allergies: Cephalexin (Verified Allergy, Unknown, 08/23/24) Medications Current Medications Medications Dose Ordered Sig/Gris Route Start Time Stop Time Status Last Admin Dose Admin Magnesium Sulfate/ Dextrose 100 ml @ 100 mls/hr Q1H IV 09/06/24 16:00 09/06/24 17:59 UNV Hydralazine HCl 10 mg Q6HP PRN IV 09/06/24 22:00 Lorazepam 1 mg Q5MINP PRN IV 09/06/24 22:00 Ondansetron HCl 4 mg Q4HP PRN IV 09/06/24 22:00 Acetaminophen 650 mg Q6HP PRN PO 09/06/24 22:00 Nitroglycerin 0.4 mg Q5MINP PRN SL 09/06/24 22:00 Morphine Sulfate 2 mg Q30M PRN IV 09/06/24 22:00 Magnesium Sulfate 1,000 ml @ 50 mls/hr Q20H IV 09/07/24 06:15 09/07/24 06:28 50 MLS/HR Exam Vital Signs Vital Signs Date Time Temp Pulse Resp B/P (MAP) Pulse Ox O2 Delivery O2 Flow Rate FiO2 09/07/24 05:00 112 24 136/87 (103) 97 09/06/24 23:00 99.6 99.6 09/06/24 19:30 Nasal Cannula* 4 36 Exam Gen: 18-year-old female in mild distress Skin: Warm, dry, normal color and texture, no rash. HEENT: Normocephalic atraumatic, mucous membranes moist and pink. Neck: Cervical and supraclavicular nodes normal without enlargement, trachea is midline, thyroid gland is normal without masses. Pulmonary: Clear to auscultation and percussion bilaterally. Cardiac: Regular rate and rhythm. No murmur Abdomen: Soft, nontender, nondistended, bowel sounds present all 4 quadrants, no guarding, no rigidity, no organomegaly. Extremities: No cyanosis, clubbing, no edema Neuro: Cranial nerves II through XII grossly intact, normal affect and speech, no focal motor deficits. Labs/Xrays ORDERING PHYSICIAN: FANNY LOYD MD PROCEDURE(s): CTACH - CT ANGIO CHEST CONTRAST REASON: r/o PE ORDER NUMBER(s): [id number], ACCESSION NUMBER(s): [id number] INDICATION: r/o PE COMPARISON: NO PRIOR CTAS OF THE CHEST. TECHNIQUE: Multidetector CTA of the chest was performed of the chest with 100 cc of intravenous contrast. PULMONARY ANGIOGRAPHY PROTOCOL was utilized using a bolus-tracking technique centered on the main pulmonary artery. Axial, coronal and sagittal multiplanar and MIP reformats were performed. Radiation Dose Information: CT Dose: CTDI volume is 25.81 mGy. Dose-length product is 2499.78 mGy*cm IV contrast use however type and amount given not indicated. The dose indicators for CT are the volume Computed Tomography (CT) Dose Index (CTDIvol) and the Dose Length Product (DLP), and are measured in units of mGy and mGy-cm, respectively. These indicators are not patient dose, but values generated from the CT scanner acquisition factors. The report includes radiation exposure data for exposures received during this examination. Findings: Suboptimal opacification of pulmonary artery. There are no large filling defects in the main pulmonary artery or left or right pulmonary arteries and no saddle embolus seen. Lower neck: Normal thyroid. Lungs: Small bilateral pleural effusions. Airspace disease posterior costophrenic angle on the left Heart/Vascular Structures: Normal heart size. Normal caliber and enhancement of the aorta. Lymph Nodes: No adenopathy Pleura: No pleural effusion or significant pneumothorax. Musculoskeletal: No acute osseous abnormality. Upper abdomen: Limited portions of the upper abdomen are unremarkable. IMPRESSION: 1. No pulmonary embolism. 2.. No findings to suggest pulmonary artery hypertension. 3. Suboptimal opacification of pulmonary arteries. 4. Airspace disease left posterior costophrenic angle. 5. Small bilateral pleural effusions 2. No acute intrathoracic abnormality. ATED BY: STEPHANIE BOWIE Jr., DO DICTATED DATE/TIME: 09/06/24 1531 ORDERING PHYSICIAN: FANNY LOYD MD PROCEDURE(s): HWOCT - HEAD WITHOUT CONTRAST REASON: seizure ORDER NUMBER(s): [id number], ACCESSION NUMBER(s): [id number] EXAM: CT HEAD WITHOUT CONTRAST INDICATION: seizure TECHNIQUE: CT of the head without intravenous contrast. Radiation Dose Information: CT Dose: CTDI volume is 32.53 mGy. Dose-length product is 2499.78 mGy*cm The dose indicators for CT are the volume Computed Tomography (CT) Dose Index (CTDIvol) and the Dose Length Product (DLP), and are measured in units of mGy and mGy-cm, respectively. These indicators are not patient dose, but values generated from the CT scanner acquisition factors. The report includes radiation exposure data for exposures received during this examination. COMPARISON: None FINDINGS: There is no evidence of acute intracranial hemorrhage, extra-axial collection, mass effect, midline shift, herniation or hydrocephalus. The ventricles, sulci and cisterns are age appropriate. The nicole-white differentiation is intact. Patchy periventricular and subcortical white matter hypoattenuation is nonspecific but may be related to small vessel ischemic disease. The visualized paranasal sinuses and mastoid air cells are clear. The surrounding soft tissues and osseous structures are unremarkable. IMPRESSION: 1. No acute intracranial hemorrhage. 2. No findings of intracranial mass. 3. No territorial ischemia. Labs Test 09/07/24 03:48 09/06/24 21:01 09/06/24 15:43 09/06/24 14:22 Range/Units White Blood Count 7.3 4.4-10.8 10^3/uL Red Blood Count 4.11 4.0-5.20 10^6/uL Hemoglobin 10.2 L 12.2-16.2 g/dL Hematocrit 30.8 #L 36.0-46.0 % Mean Corpuscular Volume 75.0 L 80.0-100.0 fL Mean Corpuscular Hemoglobin 24.9 L 28.0-32.0 pg Mean Corpuscular Hemoglobin Concent 33.3 32.0-36.0 g/dL Red Cell Distribution Width 16.5 H 11.8-14.3 % Platelet Count 184 140-450 10^3/uL Mean Platelet Volume 8.2 6.9-10.8 fL Neutrophils (%) (Auto) 76.3 37.0-80.0 % Lymphocytes (%) (Auto) 15.0 10.0-50.0 % Monocytes (%) (Auto) 7.2 0.0-12.0 % Eosinophils (%) (Auto) 1.3 0.0-7.0 % Basophils (%) (Auto) 0.2 0.0-2.0 % Neutrophils # (Auto) 5.6 1.6-8.6 10 ^3/uL Lymphocytes # (Auto) 1.1 0.4-5.4 10 ^3/uL Monocytes # (Auto) 0.5 0-1.3 10 ^3/uL Eosinophils # (Auto) 0.1 0-0.8 10 ^3/uL Basophils # (Auto) 0 0-0.2 10 ^3/uL Nucleated Red Blood Cells 0.1 % Sodium Level 141 136-145 mmol/L Potassium Level 3.5 3.5-5.1 mmol/L Chloride Level 111 H 98-107 mmol/L Carbon Dioxide Level 21 20-31 mmol/L Anion Gap 9 5-15 Blood Urea Nitrogen 10 9-23 mg/dL Creatinine 1.43 H 0.550-1.02 mg/dL Glomerular Filtration Rate Calc 54 >90 mL/min BUN/Creatinine Ratio 7.0 L 10.0-20.0 Serum Glucose 165 H 74-106 mg/dL Calcium Level 8.1 L 8.7-10.4 mg/dL Total Bilirubin 0.5 0.2-1.0 mg/dL Aspartate Amino Transferase (AST) 16 13-40 U/L Alanine Aminotransferase (ALT) 10 7-40 U/L Alkaline Phosphatase 140 H 46-116 U/L Total Protein 5.0 L 5.7-8.2 g/dL Albumin 2.9 L 3.2-4.8 g/dL Urine Color Colorless Yellow Urine Clarity Clear Clear Urine pH 5.5 5.0-9.0 Urine Specific [place] 1.010 1.001-1.035 Urine Protein Trace H Negative Urine Ketones Negative Negative Urine Blood Negative Negative /uL Urine Nitrite Negative Negative Urine Bilirubin Negative Negative Urine Urobilinogen Normal Negative mg/dL Urine Leukocyte Esterase Negative Negative /uL Urine RBC <1 0 - 4 /hpf Urine WBC <1 0 - 5 /hpf Urine Squamous Epithelial Cells None seen <5 /hpf Urine Bacteria None seen None Seen /hpf Urine Creatinine 34.40 30.0-125.0 mg/dL Urine Protein/Creatinine Ratio 1.29 Urine Glucose 4+ H Normal mg/dL Urine Total Protein 44.3 H 1-14 mg/dL Troponin I High Sensitivity 55 *H </=34 ng/L Magnesium Level 2.2 1.6-2.6 mg/dL Direct Bilirubin 0.1 <0.3 mg/dL Lactate Dehydrogenase 262 H 120-246 U/L B-Type Natriuretic Peptide 474.73 0-100 pg/mL Assessment/Plan Assessment/Plan Assessment Hypertensive encephalopathy Eclampsia Seizure activity Acute kidney injury Elevated troponin Diabetes mellitus Plan Admit the patient to telemetry to the hospitalist OBGYN consult Cardiology consult Echocardiogram pending P.r.n. antihypertensives Continue treatment per orders. Plan discussed with: Patient My Orders Orders - GRISELDA BOND AGACNJose Cruz Procedure Category Date Status Time Hydralazine Injection PHA 09/06/24 In Process (Apresoline Inject 22:00 Lorazepam 2mg/Ml Inj PHA 09/06/24 In Process (Ativan Inj) 22:00 Seizure Precautions YONIS 09/06/[address] 21:47 Admit ADMIT 09/06/24 Transmitted 21:47 Ondansetron Hcl PHA 09/06/24 In Process (Zofran) 22:00 Cardiac DIET 09/07/24 Transmitted Diet-2gna,Lofat,Lochol Breakfast Echo 2d Mode Cardiac US 09/06/24 Logged DOP 21:47 Condition: Fair YONIS 09/06/24 In Process 21:47 Acetaminophen Tablet PHA 09/06/24 In Process (Tylenol Tablet) 22:00 Bedrest With Bathroom YONIS 09/06/24 In Process Privileg 21:47 Nitroglycerin PHA 09/06/24 In Process Sublingual (Ntrostat 22:00 Morphine Sulfate PHA 09/06/24 In Process Injection 22:00 Stat Ekg For Chest YONIS 09/06/24 In Process Pain 21:47 Notify Of Changes [facility] 09/06/24 In Process From Base 21:47 Assurance Manager Insurance For [facility] 09/06/24 In Process 24 Hours 21:47 Emergency Dysrhythmia [facility] 09/06/24 In Process Protocol 21:47 Rhythm Strips Once [facility] 09/06/24 In Process Every Shift 21:47 Oxygen By Nasal RT 09/06/24 Transmitted Cannula 21:47 Date of Service: Sep 06, 2024 Billing Provider: GRISELDA BOND Common Visit Codes: [id number] INP/OBS CARE (HIGH) GRISELDA BOND Sep 07, 2024 06:35
[2024-09-07] MEDS: ACCU-CHEK COMFORT CURVE STRIP VI SCH (06:43)
[2024-09-07] MEDS: InsuLIN REG 1unit/0.01ml Soln (100units/ml) SC SCH (06:45)
--- NOTE | 2024-09-07 07:29 | DVHINCON2 ---
Date of service: Sep 07, 2024 History of Present Illness 18-year-old female presents for evaluation of a witnessed seizure. Patient currently had a normal delivery four days ago and was discharged yesterday. Patient reportedly had hypertension during her as well as diabetes mellitus. Patient had two witnessed seizures in the emergency department with postictal periods. Currently lethargic but arousable. Denies headache or blurred vision. No oral trauma. No other acute complaints reported. Past Medical History Diabetes mellitus and hypertension Past Surgical History None Family History Noncontributory Smoke: No ALCOHOL: none Drugs: None Lives: with Family Past Medical History reviewed Allergies: Coded Allergies: Cephalexin (Verified Allergy, Unknown, 08/23/24) Current Medications Current Medications Medications (Trade) Dose Ordered Sig/Gris Route PRN Reason Start Time Stop Time Status Last Admin Magnesium Sulfate/ Dextrose 100 ml @ 100 mls/hr Q1H IV 09/06/24 16:00 09/06/24 17:59 UNV Magnesium Sulfate/ Dextrose 100 ml @ 100 mls/hr Q1H IV 09/06/24 16:15 09/06/24 20:14 DC 09/06/24 19:35 Hydralazine HCl (Apresoline Injection) 10 mg Q6HP PRN IV SBP>150 09/06/24 22:00 Lorazepam (Ativan Inj) 1 mg Q5MINP PRN IV SEIZURES 09/06/24 22:00 Ondansetron HCl (Zofran) 4 mg Q4HP PRN IV NAUSEA / VOMITING 09/06/24 22:00 Acetaminophen (Tylenol Tablet) 650 mg Q6HP PRN PO PAIN SCALE 1-3 OR TEMP>100.4 09/06/24 22:00 Nitroglycerin (Ntrostat Sublingual) 0.4 mg Q5MINP PRN SL FOR CHEST PAIN 09/06/24 22:00 Morphine Sulfate 2 mg Q30M PRN IV FOR CHEST PAIN 09/06/24 22:00 Magnesium Sulfate 1,000 ml @ 50 mls/hr Q20H IV 09/07/24 06:15 09/07/24 06:28 Diagnostic Test (Pha) (Accu-Chek Comfort Curve T) 1 strip ACHS 09/07/24 07:00 09/07/24 06:43 Insulin Human Regular (InsuLIN R) ACHS SC 09/07/24 07:00 09/07/24 06:45 Dextrose 50 ml UD PRN IV Blood Sugar LESS THAN 60 09/07/24 06:30 Review of Systems not obtained, pt sleeping Vital Signs Vital Signs Date Time Temp Pulse Resp B/P (MAP) Pulse Ox O2 Delivery O2 Flow Rate FiO2 09/07/24 05:00 112 24 136/87 (103) 97 09/06/24 23:00 99.6 99.6 09/06/24 19:30 Nasal Cannula* 4 36 Physical Exam nad s1 s2 rrr ctab soft nt no edema Labs/Diagnostic Data Labs Test 09/07/24 03:48 09/06/24 21:01 09/06/24 15:43 09/06/24 14:22 Range/Units White Blood Count 7.3 4.4-10.8 10^3/uL Red Blood Count 4.11 4.0-5.20 10^6/uL Hemoglobin 10.2 L 12.2-16.2 g/dL Hematocrit 30.8 #L 36.0-46.0 % Mean Corpuscular Volume 75.0 L 80.0-100.0 fL Mean Corpuscular Hemoglobin 24.9 L 28.0-32.0 pg Mean Corpuscular Hemoglobin Concent 33.3 32.0-36.0 g/dL Red Cell Distribution Width 16.5 H 11.8-14.3 % Platelet Count 184 140-450 10^3/uL Mean Platelet Volume 8.2 6.9-10.8 fL Neutrophils (%) (Auto) 76.3 37.0-80.0 % Lymphocytes (%) (Auto) 15.0 10.0-50.0 % Monocytes (%) (Auto) 7.2 0.0-12.0 % Eosinophils (%) (Auto) 1.3 0.0-7.0 % Basophils (%) (Auto) 0.2 0.0-2.0 % Neutrophils # (Auto) 5.6 1.6-8.6 10 ^3/uL Lymphocytes # (Auto) 1.1 0.4-5.4 10 ^3/uL Monocytes # (Auto) 0.5 0-1.3 10 ^3/uL Eosinophils # (Auto) 0.1 0-0.8 10 ^3/uL Basophils # (Auto) 0 0-0.2 10 ^3/uL Nucleated Red Blood Cells 0.1 % Sodium Level 141 136-145 mmol/L Potassium Level 3.5 3.5-5.1 mmol/L Chloride Level 111 H 98-107 mmol/L Carbon Dioxide Level 21 20-31 mmol/L Anion Gap 9 5-15 Blood Urea Nitrogen 10 9-23 mg/dL Creatinine 1.43 H 0.550-1.02 mg/dL Glomerular Filtration Rate Calc 54 >90 mL/min BUN/Creatinine Ratio 7.0 L 10.0-20.0 Serum Glucose 165 H 74-106 mg/dL Calcium Level 8.1 L 8.7-10.4 mg/dL Total Bilirubin 0.5 0.2-1.0 mg/dL Aspartate Amino Transferase (AST) 16 13-40 U/L Alanine Aminotransferase (ALT) 10 7-40 U/L Alkaline Phosphatase 140 H 46-116 U/L Total Protein 5.0 L 5.7-8.2 g/dL Albumin 2.9 L 3.2-4.8 g/dL Urine Color Colorless Yellow Urine Clarity Clear Clear Urine pH 5.5 5.0-9.0 Urine Specific [place] 1.010 1.001-1.035 Urine Protein Trace H Negative Urine Ketones Negative Negative Urine Blood Negative Negative /uL Urine Nitrite Negative Negative Urine Bilirubin Negative Negative Urine Urobilinogen Normal Negative mg/dL Urine Leukocyte Esterase Negative Negative /uL Urine RBC <1 0 - 4 /hpf Urine WBC <1 0 - 5 /hpf Urine Squamous Epithelial Cells None seen <5 /hpf Urine Bacteria None seen None Seen /hpf Urine Creatinine 34.40 30.0-125.0 mg/dL Urine Protein/Creatinine Ratio 1.29 Urine Glucose 4+ H Normal mg/dL Urine Total Protein 44.3 H 1-14 mg/dL Troponin I High Sensitivity 55 *H </=34 ng/L Magnesium Level 2.2 1.6-2.6 mg/dL Direct Bilirubin 0.1 <0.3 mg/dL Lactate Dehydrogenase 262 H 120-246 U/L B-Type Natriuretic Peptide 474.73 0-100 pg/mL Assessment elevated troponin recent delivery eclampsia seizure htn ecg shows SR, RAD pt had sinus tachy but better now creat elevated bnp is elevated check echo to r/o peripartum CM bp control with :labetalol +- hydralazine as needed fu obgyn recs Plan discussed with: Patient GREGORIA BUCIO MD Sep 07, 2024 07:29
[2024-09-07 09:47] VITALS: PULSE 102; RESP 19; O2SAT 95
[2024-09-07] MEDS ORDERED: SOD CHL 0.45% 1,000 ML IV SCH (10:00)
--- NOTE | 2024-09-07 10:25 | DVHPN2 ---
Subjective Patient denies any symptoms at this time. Is slow to respond, probably postictal. Reviewed: Care Plan, H&P, Labs, Medications Changes from previous H/P or p: No Changes General: Per HPI Objective Vitals Vital Signs Date Time Temp Pulse Resp B/P (MAP) Pulse Ox O2 Delivery O2 Flow Rate FiO2 09/07/24 10:16 110 17 140/88 (105) 97 09/07/24 09:47 Nasal Cannula* 4 36 09/06/24 23:00 99.6 99.6 Intake/Output Intake and Output 09/07/24 07:00 Intake Total 400 ml Output Total 2300 ml Balance -1900 ml Intake Oral 0 ml IV Total 400 ml Output Urine Total 2300 ml General Appearance: Alert, Oriented X3, Cooperative, No acute distress HEENT: Atraumatic, PERRLA Lungs: Clear to auscultation, Normal air movement Cardiovascular: Normal S1, Normal S2 Genitourinary: No Apparent Abnormalities Musculoskeletal: Normal sensory function, Normal motor function Neuro: Normal gait, Normal speech Psych/Mental Status: Mental status NL, Mood NL Medications Current Medications Medications Dose Ordered Sig/Gris Route Start Time Stop Time Status Last Admin Dose Admin Magnesium Sulfate/ Dextrose 100 ml @ 100 mls/hr Q1H IV 09/06/24 16:00 09/06/24 17:59 UNV Hydralazine HCl 10 mg Q6HP PRN IV 09/06/24 22:00 Lorazepam 1 mg Q5MINP PRN IV 09/06/24 22:00 Ondansetron HCl 4 mg Q4HP PRN IV 09/06/24 22:00 Acetaminophen 650 mg Q6HP PRN PO 09/06/24 22:00 Nitroglycerin 0.4 mg Q5MINP PRN SL 09/06/24 22:00 Morphine Sulfate 2 mg Q30M PRN IV 09/06/24 22:00 Magnesium Sulfate 1,000 ml @ 50 mls/hr Q20H IV 09/07/24 06:15 09/07/24 06:28 50 MLS/HR Diagnostic Test (Pha) 1 strip ACHS 09/07/24 07:00 09/07/24 06:43 1 STRIP Insulin Human Regular ACHS SC 09/07/24 07:00 09/07/24 06:45 3 UNITS Dextrose 50 ml UD PRN IV 09/07/24 06:30 Labetalol HCl 100 mg Q12HR PO 09/07/24 10:00 Laboratory Results Laboratory Tests 09/07/24 03:48 Chemistry Test 09/06/24 14:22 09/07/24 03:48 09/07/24 09:57 Albumin 3.4 g/dL (3.2-4.8) 2.9 g/dL (3.2-4.8) L Calcium Level 9.0 mg/dL (8.7-10.4) 8.1 mg/dL (8.7-10.4) L Magnesium Level 2.2 mg/dL (1.6-2.6) 2.6 mg/dL (1.6-2.6) Pending Total Protein 6.1 g/dL (5.7-8.2) 5.0 g/dL (5.7-8.2) L Cardiac Markers Test 09/06/24 14:22 B-Type Natriuretic Peptide 474.73 pg/mL (0-100) LFT Test 09/06/24 14:22 09/07/24 03:48 Alanine Aminotransferase (ALT) 14 U/L (7-40) 10 U/L (7-40) Alkaline Phosphatase 188 U/L (46-116) H 140 U/L (46-116) H Aspartate Amino Transferase (AST) 18 U/L (13-40) 16 U/L (13-40) Direct Bilirubin 0.1 mg/dL (<0.3) Total Bilirubin 0.4 mg/dL (0.2-1.0) 0.5 mg/dL (0.2-1.0) HgA1c, TSH Test 09/07/24 03:48 Hemoglobin A1c Pending Urinalysis Test 09/06/24 21:01 Urine Color Colorless (Yellow) Urine Clarity Clear (Clear) Urine pH 5.5 (5.0-9.0) Urine Specific [place] 1.010 (1.001-1.035) Urine Protein Trace (Negative) H Urine Ketones Negative (Negative) Urine Blood Negative /uL (Negative) Urine Nitrite Negative (Negative) Urine Bilirubin Negative (Negative) Urine Urobilinogen Normal mg/dL (Negative) Urine Leukocyte Esterase Negative /uL (Negative) Urine RBC <1 /hpf (0 - 4) Urine WBC <1 /hpf (0 - 5) Urine Squamous Epithelial Cells None seen /hpf (<5) Urine Bacteria None seen /hpf (None Seen) Urine Creatinine 34.40 mg/dL (30.0-125.0) Urine Protein/Creatinine Ratio 1.29 Urine Glucose 4+ mg/dL (Normal) H Urine Total Protein 44.3 mg/dL (1-14) H Labs and/or images reviewed: Labs reviewed by me, Image(s) reviewed by me Assessment/Plan Assessment/Plan Impression: - eclampsia with breakthrough seizures -status post vaginal delivery four days ago -diabetes mellitus -metabolic encephalopathy secondary to breakthrough seizures -acute hypoxic respiratory failure -rule out cardiomyopathy -pulmonary embolism ruled out -acute kidney injury, vasomotor nephropathy Plan: -OBGYN consultation: Recommendations reviewed -continue magnesium drip -cardiology consultation: Recommendations discussed with Dr. Estevez. We will start labetalol 100 mg p.o. twice a day. Diuresis will be held off secondary to lack of echo as well as patient receiving IV contrast and acute kidney injury -p.r.n. IV Ativan as needed for breakthrough seizures -goal blood pressure less than 130 mmHg -continue O2 supplementation to keep saturation greater than 92% -check influenza -regular insulin sliding scale, check A1c -repeat labs and chest x-ray in a.m. -transferred to the DES Total time spent with patient discussing and formulating plan of care: 35 minutes. This medical document was created using an electronic medical record system with [employer] dictation system. Although this document has been carefully reviewed, there may still be some phonetic and typographical errors. These areas are purely typographical due to imperfections of the software programs, and do not reflect any compromise in the patient's medical care. Plan discussed with: Patient, Other (RN) My Orders Orders - AMEE LICONA NP Procedure Category Date Status Time Hemoglobin A1c LAB 09/07/24 In Process 09:50 Labetalol Hcl Tablet PHA 09/07/24 In Process (Normodyne Tablet) 10:00 Rapid Influenza A&B LAB 09/07/24 Logged 09:56 Date of Service: Sep 07, 2024 Billing Provider: AMEE LICONA NP Common Visit Codes: [id number] CARE 30-74 MIN AMEE LICONA NP Sep 07, 2024 10:25
[2024-09-07] MEDS: POTASSIUM EFFERVESENT TAB 25 MEQ PO ONE (10:47)
--- NOTE | 2024-09-07 10:47 | DVHSR ---
APPROVED REPORT EXAM: Two-dimensional and M-mode echocardiogram with Doppler and color Doppler. Blood Pressure: 136/87 mmHg INDICATION EF RISK FACTORS Height: 67, Weight: 169 DIMENSIONS LVDd4.6 (3.8-5.7cm)LA (2D)4.2 (1.9-4.0cm)Aortic Root3.1 (2.0-3.7cm) LVDs3.1 (2.5-4.0cm)LA (MM) (1.9-4.0cm)Aortic Cusp Exc1.7 (1.5-2.0cm) EF (%) 62.0 (55-70%)Rt. Atrium3.9 (1.9-4.0cm)Asc. Aorta cm IVSd1.0 (0.7-1.1cm)RV (D) (1.8-2.4cm) PWd1.2 (0.7-1.1cm) Mitral Valve MitralMitral Stenosis E wave1.18m/sMV Mean GR.mmHg A wave0.94m/sMV Peak GR.mmHg E/A ratio1.32D MVAcm2 DECEL [id number] 1/2 [place] Aortic Valve Aortic ValveAortic Stenosis V11.03m/Armand Mean GR.4mmHg V21.37m/Armand Peak GR.8mmHg LVOT Diameter2.1 (1.8-2.4cm)Doppler AVA2.60cm2 Pulmonic Valve V21.18m/s Tricuspid Valve TR Velocity2.13m/s [id number] Conclusion lvef 65-70% by visual estimate normal rv function normal atria no severe valve abnomralities noted trivial pericardial effusion noted
[2024-09-07] MEDS: LABETALOL HCL 200 MG TAB PO SCH (10:48)
[2024-09-07] MEDS: ACETAMINOPHEN 325 MG TAB PO PRN (10:48)
[2024-09-07] MEDS: LABETALOL HCL 200 MG TAB PO ONE (14:22)
[2024-09-07 15:07] LABS: Rapid Influenza A Negative (Negative); Rapid Influenza B Negative (Negative)
[2024-09-07 19:25] VITALS: PULSE 95; RESP 19; O2SAT 96
--- NOTE | 2024-09-08 06:47 | DVH ---
CHEST RADIOGRAPH Indication: chf Technique: Single frontal view of the chest was obtained Comparison: None FINDINGS: Lines and Tubes: None Lungs: Right basilar opacities are noted. Pleura: No effusion. No pneumothorax. Cardiomediastinal contours: Unremarkable Bones: No acute osseous abnormality. IMPRESSION: 1. Right basilar opacities which may reflect atelectasis or infiltrate.
[2024-09-08 07:03] LABS: Anion Gap 10 (5-15); Carbon Dioxide 23 mmol/L (20-31); Chloride 108 mmol/L (98-107); Potassium 3.5 mmol/L (3.5-5.1); Sodium 141 mmol/L (136-145)
[2024-09-08 07:04] LABS: Calcium 8.3 mg/dL (8.7-10.4)
[2024-09-08 07:09] LABS: BUN/Creatinine Ratio 7.7 (10.0-20.0); Blood Urea Nitrogen 10 mg/dL (9-23); Glucose 109 mg/dL (74-106)
[2024-09-08 07:10] LABS: Magnesium 3.1 mg/dL (1.6-2.6)
[2024-09-08] MEDS: hydrALAZINE HCL 20 MG/ML VL IV PRN (07:10)
--- NOTE | 2024-09-08 08:55 | DVHPN2 ---
Subjective Patient denies any symptoms at this time Reviewed: Care Plan, H&P, Labs, Medications Changes from previous H/P or p: Changes General: Per HPI Objective Vitals Vital Signs Date Time Temp Pulse Resp B/P (MAP) Pulse Ox O2 Delivery O2 Flow Rate FiO2 09/08/24 08:00 91 09/08/24 08:00 19 136/78 (97) 98 09/07/24 20:00 98.7 98.7 09/07/24 19:25 Nasal Cannula* 2 28 Intake/Output Intake and Output 09/08/24 07:00 Intake Total 275 ml Output Total 3075 ml Balance -2800 ml IV Total 275 ml Output Urine Total 3075 ml General Appearance: Alert, Oriented X3, Cooperative, No acute distress HEENT: Atraumatic, PERRLA Lungs: Clear to auscultation, Normal air movement Cardiovascular: Normal S1, Normal S2 Genitourinary: No Apparent Abnormalities Musculoskeletal: Normal sensory function, Normal motor function Neuro: Normal gait, Normal speech Psych/Mental Status: Mental status NL, Mood NL Medications Current Medications Medications Dose Ordered Sig/Gris Route Start Time Stop Time Status Last Admin Dose Admin Magnesium Sulfate/ Dextrose 100 ml @ 100 mls/hr Q1H IV 09/06/24 16:00 09/06/24 17:59 UNV Hydralazine HCl 10 mg Q6HP PRN IV 09/06/24 22:00 Lorazepam 1 mg Q5MINP PRN IV 09/06/24 22:00 Ondansetron HCl 4 mg Q4HP PRN IV 09/06/24 22:00 Acetaminophen 650 mg Q6HP PRN PO 09/06/24 22:00 09/08/24 06:36 650 MG Nitroglycerin 0.4 mg Q5MINP PRN SL 09/06/24 22:00 Morphine Sulfate 2 mg Q30M PRN IV 09/06/24 22:00 Diagnostic Test (Pha) 1 strip ACHS 09/07/24 07:00 09/08/24 06:32 1 STRIP Insulin Human Regular ACHS SC 09/07/24 07:00 09/07/24 22:30 4 UNITS Dextrose 50 ml UD PRN IV 09/07/24 06:30 Labetalol HCl 200 mg Q12HR PO 09/08/24 10:00 Laboratory Results Laboratory Tests 09/07/24 03:48 09/08/24 06:06 Chemistry Test 09/07/24 09:57 09/07/24 14:42 09/07/24 19:05 09/07/24 23:15 Magnesium Level 3.5 mg/dL (1.6-2.6) H 4.1 mg/dL (1.6-2.6) *H 3.5 mg/dL (1.6-2.6) H 3.8 mg/dL (1.6-2.6) H Test 09/08/24 02:18 09/08/24 06:06 Magnesium Level 3.6 mg/dL (1.6-2.6) H 3.1 mg/dL (1.6-2.6) H Calcium Level 8.3 mg/dL (8.7-10.4) L Urinalysis Test 09/06/24 21:01 Urine Color Colorless (Yellow) Urine Clarity Clear (Clear) Urine pH 5.5 (5.0-9.0) Urine Specific [place] 1.010 (1.001-1.035) Urine Protein Trace (Negative) H Urine Ketones Negative (Negative) Urine Blood Negative /uL (Negative) Urine Nitrite Negative (Negative) Urine Bilirubin Negative (Negative) Urine Urobilinogen Normal mg/dL (Negative) Urine Leukocyte Esterase Negative /uL (Negative) Urine RBC <1 /hpf (0 - 4) Urine WBC <1 /hpf (0 - 5) Urine Squamous Epithelial Cells None seen /hpf (<5) Urine Bacteria None seen /hpf (None Seen) Urine Creatinine 34.40 mg/dL (30.0-125.0) Urine Protein/Creatinine Ratio 1.29 Urine Glucose 4+ mg/dL (Normal) H Urine Total Protein 44.3 mg/dL (1-14) H Labs and/or images reviewed: Labs reviewed by me Assessment/Plan Assessment/Plan Impression: - eclampsia with breakthrough seizures -status post vaginal delivery four days ago -diabetes mellitus -metabolic encephalopathy secondary to breakthrough seizures -acute hypoxic respiratory failure -rule out cardiomyopathy -pulmonary embolism ruled out -acute kidney injury, vasomotor nephropathy Plan: Events: Patient has magnesium infusion was stopped yesterday evening and not restarted. Patient continues to be without seizure activity. Patient noted to be hypertensive still. -OBGYN consultation: Recommendations reviewed -continue magnesium drip -increase labetalol to 200 mg p.o. twice a day -p.r.n. IV Ativan as needed for breakthrough seizures -goal blood pressure less than 130 mmHg -continue O2 supplementation to keep saturation greater than 92% -check influenza : Negative -regular insulin sliding scale -transfer to Medical/Surgical unit Total time spent with patient discussing and formulating plan of care: 35 minutes. This medical document was created using an electronic medical record system with [employer] dictation system. Although this document has been carefully reviewed, there may still be some phonetic and typographical errors. These areas are purely typographical due to imperfections of the software programs, and do not reflect any compromise in the patient's medical care. Plan discussed with: Patient, Other (RN) My Orders Orders - AMEE LICONA NP Procedure Category Date Status Time Chest Portable XY 09/08/24 Resulted 04:00 Drug Screen LAB 09/07/24 Logged 11:57 Labetalol Hcl Tablet PHA 09/08/24 In Process (Normodyne Tablet) 10:00 Transfer Orders XFER 09/08/24 Transmitted 08:47 OOB ORDERS 09/08/24 Transmitted 08:48 Date of Service: Sep 08, 2024 Billing Provider: AMEE LICONA NP Common Visit Codes: [id number] INP/OBS CARE(HIGH) AMEE LICONA NP Sep 08, 2024 08:55
[2024-09-08] MEDS: LABETALOL HCL 200 MG TAB PO SCH ×2 (09:18→21:13)
[2024-09-08] MEDS ORDERED: hydrALAZINE HCL 20 MG/ML VL IV PRN ×2 (09:30→09:45)
[2024-09-08] MEDS: LABETALOL HCL 200 MG TAB PO ONE (10:57)
[2024-09-08 13:05] LABS: Amphetamine Screen, Urine Neg (NEGATIVE)
[2024-09-08 13:07] LABS: Barbiturate Scree,Urine Neg (NEGATIVE); Benzodiazephine Screen, Urine Neg (NEGATIVE); Cannabinoid Screen, Urine Neg (NEGATIVE); Cocaine Screen, Urine Neg (NEGATIVE); Opiate Scree,Urine Neg (NEGATIVE); Phencyclidine Screen, Urine Neg (NEGATIVE)
--- NOTE | 2024-09-08 14:20 | DVHINCON2 ---
Date of service: Sep 08, 2024 Reason for Consultation f/u on eclamptic seizure History of Present Illness 18y s/p at 38 wk, delivered at outside hospital Pt Admitted to hospital for eclamptic PP seizure Today Pt reports headache again now. She took tylenol in the morning and it helped. Denies vision changes/epigastric pain/SOB/chest pain. Past Medical History Cardiac: No pertinent Hx Pulmonary: No pertinent Hx Central Nervous System: No pertinent Hx GI: No pertinent Hx Hemotology/Oncology: No pertinent Hx Hepatobiliary: No pertinent Hx Psychiatric: No pertinent Hx Musculoskeletal: No pertinent Hx Rheumotologic: No pertinent Hx Infectious Disease: No peritnent Hx ENT: No pertinent Hx Renal/: No pertinent Hx Endocrine: IDDM Dermatology: No pertinent Hx Past Surgical History: No pertinent Hx Smoker: No Hx (Negative) Alocohol: None Drugs: None Lives with: With family Domestic Violence: Neg Past Surgical History none Allergies: Coded Allergies: Cephalexin (Verified Allergy, Unknown, 08/23/24) Home Meds none Current Medications Current Medications Medications (Trade) Dose Ordered Sig/Gris Route PRN Reason Start Time Stop Time Status Last Admin Labetalol HCl (Normodyne Tablet) 200 mg Q12HR PO 09/08/24 10:00 09/08/24 09:47 DC 09/08/24 09:18 Hydralazine HCl (Apresoline Injection) 10 mg Q6HP PRN IV SBP>130 09/08/24 09:30 09/08/24 09:47 DC Hydralazine HCl (Apresoline Injection) 10 mg Q6HR PRN IV SBP>160 09/08/24 09:45 Labetalol HCl (Normodyne Tablet) 300 mg Q12HR PO 09/08/24 22:00 Review of Systems Constitutional: No symptom reported Ears, Nose, & Throat: No symptom reported Eyes: No symptom reported Pulmonary/Respiratory: Dyspnea Cardiovascular: Edema Gastrointestinal: No symptom reported Genitourinary: No symptom reported Musculoskeletal: No symptom reported Skin: No symptom reported Psychiatric: No symptom reported Endocrine: No symptom reported Hemotologic/Lymphatic: No symptom reported Neuro: Headache and s/p seizure Vital Signs Vital Signs Date Time Temp Pulse Resp B/P (MAP) Pulse Ox O2 Delivery O2 Flow Rate FiO2 09/08/24 12:00 83 09/08/24 12:00 23 154/78 (103) 97 09/08/24 09:00 97.9 09/07/24 19:25 Nasal Cannula* 2 28 Physical Exam General Appeara: Well developed, Well nourished, Normal Appearance Head Exam: Normal inspection Neck Exam: Normal inspection Eye Exam: bilateral eye PERRLA Abdominal Exam: Normal bowel sounds, Soft, No tenderness Rectal Exam: Deferred Pelvic Exam: Not done Legs: bilateral leg non-tender, 2+ edema BLE Tendon/ Neuro: Normal sensation, Normal motor function LMFT Exam: Normal hearing, Normal speech, No clonus DTR Exam: 2+ Knee (R), 2+ Knee (L) Neuro/Mental St: Alert, Oriented Appearance: Appropriate appearance, Appropriate insight Thoughts/Psych: Normal thought pattern Labs/Diagnostic Data Labs Test 09/08/24 12:00 09/08/24 11:24 09/08/24 06:06 09/07/24 14:35 Range/Units Urine Opiates Screen Neg NEGATIVE Urine Fentanyl Screen Neg NEGATIVE Urine Barbiturates Screen Neg NEGATIVE Urine Phencyclidine Screen Neg NEGATIVE Urine Amphetamines Screen Neg NEGATIVE Urine Benzodiazepines Screen Neg NEGATIVE Urine Cocaine Screen Neg NEGATIVE Urine Cannabinoids Screen Neg NEGATIVE POC Glucose 265 H 70-106 mg/dl Sodium Level 141 136-145 mmol/L Potassium Level 3.5 3.5-5.1 mmol/L Chloride Level 108 H 98-107 mmol/L Carbon Dioxide Level 23 20-31 mmol/L Anion Gap 10 5-15 Blood Urea Nitrogen 10 9-23 mg/dL Creatinine 1.30 H 0.550-1.02 mg/dL Glomerular Filtration Rate Calc 60 >90 mL/min BUN/Creatinine Ratio 7.7 L 10.0-20.0 Serum Glucose 109 H 74-106 mg/dL Calcium Level 8.3 L 8.7-10.4 mg/dL Magnesium Level 3.1 H 1.6-2.6 mg/dL Influenza Type A Antigen Negative Negative Influenza Type B Antigen Negative Negative Test 09/07/24 03:48 09/06/24 21:01 09/06/24 15:43 09/06/24 14:22 Range/Units White Blood Count 7.3 4.4-10.8 10^3/uL Red Blood Count 4.11 4.0-5.20 10^6/uL Hemoglobin 10.2 L 12.2-16.2 g/dL Hematocrit 30.8 #L 36.0-46.0 % Mean Corpuscular Volume 75.0 L 80.0-100.0 fL Mean Corpuscular Hemoglobin 24.9 L 28.0-32.0 pg Mean Corpuscular Hemoglobin Concent 33.3 32.0-36.0 g/dL Red Cell Distribution Width 16.5 H 11.8-14.3 % Platelet Count 184 140-450 10^3/uL Mean Platelet Volume 8.2 6.9-10.8 fL Neutrophils (%) (Auto) 76.3 37.0-80.0 % Lymphocytes (%) (Auto) 15.0 10.0-50.0 % Monocytes (%) (Auto) 7.2 0.0-12.0 % Eosinophils (%) (Auto) 1.3 0.0-7.0 % Basophils (%) (Auto) 0.2 0.0-2.0 % Neutrophils # (Auto) 5.6 1.6-8.6 10 ^3/uL Lymphocytes # (Auto) 1.1 0.4-5.4 10 ^3/uL Monocytes # (Auto) 0.5 0-1.3 10 ^3/uL Eosinophils # (Auto) 0.1 0-0.8 10 ^3/uL Basophils # (Auto) 0 0-0.2 10 ^3/uL Nucleated Red Blood Cells 0.1 % Hemoglobin A1c 9.8 H <5.7 % A1C Total Bilirubin 0.5 0.2-1.0 mg/dL Aspartate Amino Transferase (AST) 16 13-40 U/L Alanine Aminotransferase (ALT) 10 7-40 U/L Alkaline Phosphatase 140 H 46-116 U/L Total Protein 5.0 L 5.7-8.2 g/dL Albumin 2.9 L 3.2-4.8 g/dL Urine Color Colorless Yellow Urine Clarity Clear Clear Urine pH 5.5 5.0-9.0 Urine Specific [place] 1.010 1.001-1.035 Urine Protein Trace H Negative Urine Ketones Negative Negative Urine Blood Negative Negative /uL Urine Nitrite Negative Negative Urine Bilirubin Negative Negative Urine Urobilinogen Normal Negative mg/dL Urine Leukocyte Esterase Negative Negative /uL Urine RBC <1 0 - 4 /hpf Urine WBC <1 0 - 5 /hpf Urine Squamous Epithelial Cells None seen <5 /hpf Urine Bacteria None seen None Seen /hpf Urine Creatinine 34.40 30.0-125.0 mg/dL Urine Protein/Creatinine Ratio 1.29 Urine Glucose 4+ H Normal mg/dL Urine Total Protein 44.3 H 1-14 mg/dL Troponin I High Sensitivity 55 *H </=34 ng/L Direct Bilirubin 0.1 <0.3 mg/dL Lactate Dehydrogenase 262 H 120-246 U/L B-Type Natriuretic Peptide 474.73 0-100 pg/mL Primary Diagnosis s/p Eclamptic seizure Pre-existing IDDM (type 1) Plan Discussed findings with lynda Francois to give tylenol as prescribed for headache. Dr. Douglas's BP parameter to give Hydralazine 10mg IVP q6hrs is SBP >160 and/or DBP >95. Dr. Douglas increased labetalol PO dose to 300mg BID. Dr. Douglas agrees with POC and pt is cleared by [facility]. Medicine to continue pts care. Thank you for the consult! Plan discussed with: Patient QUE HART CN Sep 08, 2024 14:20
[2024-09-08] MEDS: NIFEdipine ER 30 MG TAB PO ONE (15:03)
[2024-09-08 17:00] VITALS: BP 149/87; PULSE 87; RESP 18; TEMP 98.3; O2SAT 94
[2024-09-08 17:05] VITALS: BP 148/85; PULSE 85; PULSE 87; RESP 18; TEMP 98.2; O2SAT 94
[2024-09-08 21:53] VITALS: BP 148/82; PULSE 91; RESP 18; TEMP 97.9; O2SAT 97
[2024-09-09 01:00] VITALS: BP 146/89; PULSE 87; RESP 18; TEMP 98; O2SAT 97
[2024-09-09 05:00] VITALS: BP 147/84; PULSE 100; RESP 18; TEMP 98.5; O2SAT 97
[2024-09-09 09:00] VITALS: BP 149/83; PULSE 98; RESP 16; TEMP 99.4; O2SAT 97
[2024-09-09] MEDS: NIFEdipine ER 30 MG TAB PO SCH (09:01)
[2024-09-09] MEDS ORDERED: LABE200T10 PO (10:59)
[2024-09-09] MEDS ORDERED: NIFE1TAB31 PO (10:59)
--- NOTE | 2024-09-09 11:05 | DVHDS2 ---
Discharge Summary Date of Admission Sep 06, 2024 at 21:47 Date of Discharge: Sep 09, 2024 Admitting Diagnosis Hypertensive encephalopathy Labs/Diagnostic Data: Laboratory Results Test 09/09/24 06:09 09/08/24 12:00 09/08/24 06:06 09/07/24 14:35 POC Glucose 260 mg/dl (70-106) Urine Opiates Screen Neg (NEGATIVE) Urine Fentanyl Screen Neg (NEGATIVE) Urine Barbiturates Screen Neg (NEGATIVE) Urine Phencyclidine Screen Neg (NEGATIVE) Urine Amphetamines Screen Neg (NEGATIVE) Urine Benzodiazepines Screen Neg (NEGATIVE) Urine Cocaine Screen Neg (NEGATIVE) Urine Cannabinoids Screen Neg (NEGATIVE) Sodium Level 141 mmol/L (136-145) Potassium Level 3.5 mmol/L (3.5-5.1) Chloride Level 108 mmol/L (98-107) Carbon Dioxide Level 23 mmol/L (20-31) Anion Gap 10 (5-15) Blood Urea Nitrogen 10 mg/dL (9-23) Creatinine 1.30 mg/dL (0.550-1.02) Glomerular Filtration Rate Calc 60 mL/min (>90) BUN/Creatinine Ratio 7.7 (10.0-20.0) Serum Glucose 109 mg/dL (74-106) Calcium Level 8.3 mg/dL (8.7-10.4) Magnesium Level 3.1 mg/dL (1.6-2.6) Influenza Type A Antigen Negative (Negative) Influenza Type B Antigen Negative (Negative) Test 09/07/24 03:48 09/06/24 21:01 09/06/24 15:43 09/06/24 14:22 White Blood Count 7.3 10^3/uL (4.4-10.8) Red Blood Count 4.11 10^6/uL (4.0-5.20) Hemoglobin 10.2 g/dL (12.2-16.2) Hematocrit 30.8 % (36.0-46.0) Mean Corpuscular Volume 75.0 fL (80.0-100.0) Mean Corpuscular Hemoglobin 24.9 pg (28.0-32.0) Mean Corpuscular Hemoglobin Concent 33.3 g/dL (32.0-36.0) Red Cell Distribution Width 16.5 % (11.8-14.3) Platelet Count 184 10^3/uL (140-450) Mean Platelet Volume 8.2 fL (6.9-10.8) Neutrophils (%) (Auto) 76.3 % (37.0-80.0) Lymphocytes (%) (Auto) 15.0 % (10.0-50.0) Monocytes (%) (Auto) 7.2 % (0.0-12.0) Eosinophils (%) (Auto) 1.3 % (0.0-7.0) Basophils (%) (Auto) 0.2 % (0.0-2.0) Neutrophils # (Auto) 5.6 10 ^3/uL (1.6-8.6) Lymphocytes # (Auto) 1.1 10 ^3/uL (0.4-5.4) Monocytes # (Auto) 0.5 10 ^3/uL (0-1.3) Eosinophils # (Auto) 0.1 10 ^3/uL (0-0.8) Basophils # (Auto) 0 10 ^3/uL (0-0.2) Nucleated Red Blood Cells 0.1 % Hemoglobin A1c 9.8 % A1C (<5.7) Total Bilirubin 0.5 mg/dL (0.2-1.0) Aspartate Amino Transferase (AST) 16 U/L (13-40) Alanine Aminotransferase (ALT) 10 U/L (7-40) Alkaline Phosphatase 140 U/L (46-116) Total Protein 5.0 g/dL (5.7-8.2) Albumin 2.9 g/dL (3.2-4.8) Urine Color Colorless (Yellow) Urine Clarity Clear (Clear) Urine pH 5.5 (5.0-9.0) Urine Specific [place] 1.010 (1.001-1.035) Urine Protein Trace (Negative) Urine Ketones Negative (Negative) Urine Blood Negative /uL (Negative) Urine Nitrite Negative (Negative) Urine Bilirubin Negative (Negative) Urine Urobilinogen Normal mg/dL (Negative) Urine Leukocyte Esterase Negative /uL (Negative) Urine RBC <1 /hpf (0 - 4) Urine WBC <1 /hpf (0 - 5) Urine Squamous Epithelial Cells None seen /hpf (<5) Urine Bacteria None seen /hpf (None Seen) Urine Creatinine 34.40 mg/dL (30.0-125.0) Urine Protein/Creatinine Ratio 1.29 Urine Glucose 4+ mg/dL (Normal) Urine Total Protein 44.3 mg/dL (1-14) Troponin I High Sensitivity 55 ng/L (</=34) Direct Bilirubin 0.1 mg/dL (<0.3) Lactate Dehydrogenase 262 U/L (120-246) B-Type Natriuretic Peptide 474.73 pg/mL (0-100) Other Laboratory Tests 09/08/24 06:06 09/07/24 03:48 Brief Hx & Hospital Course: History of Present Illness 18-year-old female presents for evaluation of a witnessed seizure. Patient currently had a normal delivery four days ago and was discharged yesterday. Patient reportedly had hypertension during her as well as diabetes mellitus. Patient had two witnessed seizures in the emergency department with postictal periods. Currently lethargic but arousable. Denies headache or blurred vision. No oral trauma. No other acute complaints reported. Course of hospitalization: Patient had both Cardiology and OBGYN consultation obtained. Patient was started on magnesium drip as well as labetalol which was titrated up to 300 mg p.o. twice a day. Patient continued to be hypertensive. Nifedipine extended release 30 mg was added. Echocardiogram was performed which was unremarkable. CT angiogram of the chest revealed bilateral pleural effusions. Patient was blood pressure has improved. The patient was given Lasix. O2 saturation on room air is noted to be 94%. Patient states she has been ambulating without difficulty. Since being admitted, patient has had no seizure activity. Patient was agreeable to be discharged home, follow up with the discharge Clinic in one week, and follow up with her OBGYN in the next available appointment. She will be continued on labetalol 300 mg p.o. twice a day as well as nifedipine extended release 30 mg daily. She was instructed to check her blood pressure daily and hold medications for systolic blood pressure less than 110 mmHg. Physical exam General: Alert and Oriented x3. No acute distress. Well-nourished. Eyes: EOMI. Anicteric. HENT: Moist mucous membranes. Lungs: Clear to auscultation bilaterally. No accessory muscle use. Cardiovascular: Regular rate and rhythm. No murmur. No JVD. Abdomen: Soft, non-tender and non-distended. No palpable masses. Extremities: No edema. Non-tender. Skin: No rashes or lesions. Warm. Neurologic: No focal neurological deficits. CN II-XII grossly intact, but not individually tested. Psychiatric: Cooperative. Appropriate mood and affect. Total time spent with patient discussing and formulating plan of care: 35 minutes. This medical document was created using an electronic medical record system with [employer] system. Although this document has been carefully reviewed, there may still be some phonetic and typographical errors. These areas are purely typographical due to imperfections of the software programs, and do not reflect any compromise in the patient's medical care. Consults/Reason for consult Cardiology: Elevated troponin OBGYN: eclampsia Condition at Discharge: Fair Final Diagnosis/Problems List eclampsia with breakthrough seizure Secondary Diagnosis: -status post vaginal delivery -diabetes mellitus -metabolic encephalopathy secondary to breakthrough seizures -acute hypoxic respiratory failure -ruled out cardiomyopathy -pulmonary embolism ruled out -acute kidney injury, vasomotor nephropathy Discharge Disposition: Home Discharge Instruct/Medications Diet: Consistent carbohydrate, Cardiac 2g Na,low cholest Activity: No Restrictions, As Tolerated Follow Up/Referral: Follow up with discharge Clinic in one week Follow up with OBGYN at earliest available appointment Medications: Labetalol 300 mg p.o. twice a day Nifedipine ER 30 mg p.o. daily Continue home diabetic regimen 36 Discharge Statement: "Patient was advised to return to the ER or call 911 if any headaches, dizziness, shortness of breath, chest pain, abdominal pain, bleeding, fevers, or worsening of medical condition. Patient was counseled about treatment plan, medications, possible side effects, patientverbalized understanding. All questions were answered to the best of my ability. This discharge took greater then 30 minutes in planning, reviewing documentation, counseling the patient, and discussing with other team members." ASSESSMENT ASSESSMENT Assessment eclampsia with breakthrough seizure Date of Service: Sep 09, 2024 Billing Provider: AMEE LCIONA NP Common Visit Codes: 42693-UVH/[id number] DISCH DAY >30min AMEE LICONA NP Sep 09, 2024 11:05
--- NOTE | 2024-09-09 12:12 | DVHPN2 ---
Subjective Progress Notes Subjective Patient feels better No more seizure activity BP better controlled on oral meds Objective PHYSICAL EXAM Physical Exam: Alert, NAD Neuro: Grossly WNL Ext soft, NT, neg heriberto sign abd soft, NT Vital Signs and I&O Vital Signs Date Time Temp Pulse Resp B/P (MAP) Pulse Ox O2 Delivery O2 Flow Rate FiO2 09/09/24 09:01 149/83 09/09/24 09:01 98 09/09/24 09:00 99.4 16 97 99.4 09/09/24 08:00 Nasal Cannula* 2 28 Intake and Output 09/09/24 07:00 Intake Total 900 ml Output Total 2200 ml Balance -1300 ml Intake Oral 900 ml Output Urine Total 2200 ml Lab results Laboratory Tests Test 09/06/24 14:22 09/06/24 15:43 09/06/24 21:01 09/07/24 03:48 Range/Units White Blood Count 8.9 7.3 4.4-10.8 10^3/uL Red Blood Count 4.55 4.11 4.0-5.20 10^6/uL Hemoglobin 11.3 L 10.2 L 12.2-16.2 g/dL Hematocrit 34.3 L 30.8 #L 36.0-46.0 % Mean Corpuscular Volume 75.4 L 75.0 L 80.0-100.0 fL Mean Corpuscular Hemoglobin 24.7 L 24.9 L 28.0-32.0 pg Mean Corpuscular Hemoglobin Concent 32.8 33.3 32.0-36.0 g/dL Red Cell Distribution Width 16.3 H 16.5 H 11.8-14.3 % Platelet Count 211 184 140-450 10^3/uL Mean Platelet Volume 8.1 8.2 6.9-10.8 fL Neutrophils (%) (Auto) 83.6 H 76.3 37.0-80.0 % Lymphocytes (%) (Auto) 10.3 15.0 10.0-50.0 % Monocytes (%) (Auto) 4.9 7.2 0.0-12.0 % Eosinophils (%) (Auto) 1.1 1.3 0.0-7.0 % Basophils (%) (Auto) 0.1 0.2 0.0-2.0 % Neutrophils # (Auto) 7.5 5.6 1.6-8.6 10 ^3/uL Lymphocytes # (Auto) 0.9 1.1 0.4-5.4 10 ^3/uL Monocytes # (Auto) 0.4 0.5 0-1.3 10 ^3/uL Eosinophils # (Auto) 0.1 0.1 0-0.8 10 ^3/uL Basophils # (Auto) 0 0 0-0.2 10 ^3/uL Nucleated Red Blood Cells 0.0 0.1 % Sodium Level 141 141 136-145 mmol/L Potassium Level 4.2 3.5 3.5-5.1 mmol/L Chloride Level 108 H 111 H 98-107 mmol/L Carbon Dioxide Level 17 L 21 20-31 mmol/L Anion Gap 16 H 9 5-15 Blood Urea Nitrogen 15 10 9-23 mg/dL Creatinine 1.74 H 1.43 H 0.550-1.02 mg/dL Glomerular Filtration Rate Calc 43 54 >90 mL/min BUN/Creatinine Ratio 8.6 L 7.0 L 10.0-20.0 Serum Glucose 239 H 165 H 74-106 mg/dL Calcium Level 9.0 8.1 L 8.7-10.4 mg/dL Magnesium Level 2.2 2.6 1.6-2.6 mg/dL Total Bilirubin 0.4 0.5 0.2-1.0 mg/dL Direct Bilirubin 0.1 <0.3 mg/dL Aspartate Amino Transferase (AST) 18 16 13-40 U/L Alanine Aminotransferase (ALT) 14 10 7-40 U/L Alkaline Phosphatase 188 H 140 H 46-116 U/L Lactate Dehydrogenase 262 H 120-246 U/L Troponin I High Sensitivity 40 *H 55 *H </=34 ng/L B-Type Natriuretic Peptide 474.73 0-100 pg/mL Total Protein 6.1 5.0 L 5.7-8.2 g/dL Albumin 3.4 2.9 L 3.2-4.8 g/dL Urine Color Colorless Yellow Urine Clarity Clear Clear Urine pH 5.5 5.0-9.0 Urine Specific [place] 1.010 1.001-1.035 Urine Protein Trace H Negative Urine Ketones Negative Negative Urine Blood Negative Negative /uL Urine Nitrite Negative Negative Urine Bilirubin Negative Negative Urine Urobilinogen Normal Negative mg/dL Urine Leukocyte Esterase Negative Negative /uL Urine RBC <1 0 - 4 /hpf Urine WBC <1 0 - 5 /hpf Urine Squamous Epithelial Cells None seen <5 /hpf Urine Bacteria None seen None Seen /hpf Urine Creatinine 34.40 30.0-125.0 mg/dL Urine Protein/Creatinine Ratio 1.29 Urine Glucose 4+ H Normal mg/dL Urine Total Protein 44.3 H 1-14 mg/dL Hemoglobin A1c 9.8 H <5.7 % A1C Test 09/07/24 09:57 09/07/24 11:41 09/07/24 14:35 09/07/24 14:42 Range/Units Magnesium Level 3.5 H 4.1 *H 1.6-2.6 mg/dL POC Glucose 90 70-106 mg/dl Influenza Type A Antigen Negative Negative Influenza Type B Antigen Negative Negative Test 09/07/24 17:08 09/07/24 19:05 09/07/24 22:07 09/07/24 23:15 Range/Units POC Glucose 244 H 202 H 70-106 mg/dl Magnesium Level 3.5 H 3.8 H 1.6-2.6 mg/dL Test 09/08/24 02:18 09/08/24 06:06 09/08/24 06:23 09/08/24 11:24 Range/Units Magnesium Level 3.6 H 3.1 H 1.6-2.6 mg/dL Sodium Level 141 136-145 mmol/L Potassium Level 3.5 3.5-5.1 mmol/L Chloride Level 108 H 98-107 mmol/L Carbon Dioxide Level 23 20-31 mmol/L Anion Gap 10 5-15 Blood Urea Nitrogen 10 9-23 mg/dL Creatinine 1.30 H 0.550-1.02 mg/dL Glomerular Filtration Rate Calc 60 >90 mL/min BUN/Creatinine Ratio 7.7 L 10.0-20.0 Serum Glucose 109 H 74-106 mg/dL Calcium Level 8.3 L 8.7-10.4 mg/dL POC Glucose 118 H 265 H 70-106 mg/dl Test 09/08/24 12:00 09/08/24 17:20 09/08/24 21:15 09/09/24 02:16 Range/Units Urine Opiates Screen Neg NEGATIVE Urine Fentanyl Screen Neg NEGATIVE Urine Barbiturates Screen Neg NEGATIVE Urine Phencyclidine Screen Neg NEGATIVE Urine Amphetamines Screen Neg NEGATIVE Urine Benzodiazepines Screen Neg NEGATIVE Urine Cocaine Screen Neg NEGATIVE Urine Cannabinoids Screen Neg NEGATIVE POC Glucose 138 H 217 H 71 70-106 mg/dl Test 09/09/24 03:37 09/09/24 06:09 09/09/24 11:10 Range/Units POC Glucose 231 H 260 H 228 H 70-106 mg/dl Assessment and Plan ASSESSMENT AND PLAN Assessment and Plan 1. s/p Eclamptic seizure 2. Uncontrolled HTN 3. Diabetes pre-existing 4. 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
[2024-09-09] MEDS: FUROSEMIDE 20 MG TAB PO ONE (12:51)
[2024-09-09 13:00] VITALS: BP 155/90; PULSE 91; RESP 16; TEMP 98.2; O2SAT 94
[2024-09-09 14:12] VITALS: BP 148/89; PULSE 91; RESP 18; TEMP 37.4; O2SAT 94
[2024-09-09 17:26] VITALS: BP 152/70; PULSE 78; RESP 16; TEMP 98.2; O2SAT 95
== END 2024-09-09 17:30 | disposition home or self-care (01) | DRG 561 ==
LOC: ER 13:52 → EDUNIT# 13:52 → EDBD 13:52 → TELE 21:47 → TELE-E-ADS 09-08 17:10
PROVIDERS: ADMIT Nurse Practitioner; ATTEND Nurse Practitioner Acute Care
DX: O15.2 Eclampsia complicating the puerperium (principal); J96.01 Acute respiratory failure with hypoxia; N17.0 Acute kidney failure with tubular necrosis; I67.4 Hypertensive encephalopathy; O90.49 Other postpartum acute kidney failure; J90 Pleural effusion, not elsewhere classified; O90.89 Other complications of the puerperium, not elsewhere classified; O99.53 Diseases of the respiratory system complicating the puerperium; O24.93 Unspecified diabetes mellitus in the puerperium; O16.5 Unspecified maternal hypertension, complicating the puerperium; E11.9 Type 2 diabetes mellitus without complications; G40.909 Epilepsy, unspecified, not intractable, without status epilepticus; Z79.4 Long term (current) use of insulin; Z88.1 Allergy status to other antibiotic agents; Z87.891 Personal history of nicotine dependence
CPT/HCPCS: 36415; 70450; 71045; 71275; 72125; 80048; 80053; 80076; 80307; 81001; 82570; 82962; 83036; 83615; 83735; 83880; 84156; 84484; 85025; 87804; 93005; 93306; 99291; G0378; J1815

== ENCOUNTER 2024-10-15 19:53 | Emergency (ER) | payer MEDICAID, OTHER ==
[~2024-10-15] VITALS: Ht 170.2 cm; Wt 76.1 kg
[~2024-10-15 19:53] MED LIST: LABE200T10 PO; NIFE1TAB31 PO
[2024-10-15 20:12] VITALS: BP 138/97; RESP 16; O2SAT 98
[2024-10-15 20:25] VITALS: PULSE 85
--- NOTE | 2024-10-15 20:29 | ED.PDOC ---
History of Present Illness HPI Comments 19-year-old female who came to ER for dizziness. Patient is a , delivered a term LBG via vaginal delivery 6 weeks ago. Two days after delivery, patient had a seizure episode, was brought to the ER noted that her blood pressure was elevated. Patient eventually improved, was sent home with labetalol and n ifedipine as medications for portal hypertension. Since then patient has been having intermittent, random episodes of dizziness and lightheadedness. Denies any acute chest pains or shortness of breath. 1 hour ago, patient started feeling dizzy and lightheaded again, with tremors and right leg pains prompting patient to come to the ER. Patient states blood pressure taken at home was systolic 120s. Upon arrival blood pressure was 138/97 mm Hg Chief Complaint: Dizziness Time Seen by MD: 20:29 Primary Care Provider: DIEGO Reviewed Notes: Nurses Notes Allergies: Coded Allergies: Cephalexin (Verified Allergy, Unknown, 08/23/24) Home Meds Active Scripts Amlodipine Besylate (Amlodipine Besylate) 5 Mg Tab, 1 TAB PO DAILY for 90 Days, #90 TAB 5 Refills Prov:ADITI GALINDO MD 10/15/24 Nifedipine (Nifedipine Er) 30 Mg Tab, 30 MG PO DAILY for 30 Days, #30 TAB 1 Refill Prov:AMEE LICONA NP 09/09/24 Labetalol HCl (Labetalol HCl) 200 Mg Tab, 300 MG PO Q12HR for 30 Days, #90 TAB 1 Refill Prov:AMEE LICONA NP 09/09/24 Information Source: Patient Mode of Arrival: Ambulatory Severity: Moderate Timing: Weeks Duration: Intermittent Past Medical History PAST MEDICAL HISTORY: DM, HTN Surgical History: Denies all surgeries CONTRACT WRITER History: No Pertinent CONTRACT WRITER History Family History Family History: Unknown Social History Smoker: Non-Smoker Alcohol: Denies ETOH Use Drugs: Denies Drug Use Lives In: Home Constitutional: denies: chills, diaphoresis, fatigue, fever, malaise, sweats, weakness, others EENTM: denies: blurred vision, double vision, ear bleeding, ear discharge, ear drainage, ear pain, ear ringing, eye pain, eye redness, hearing loss, mouth pain, mouth swelling, nasal discharge, nose bleeding, nose congestion, nose pain, photophobia, tearing, throat pain, throat swelling, voice changes, others Respiratory: denies: cough, hemoptysis, orthopnea, SOB at rest, shortness of breath, SOB with excertion, stridor, wheezing, others Cardiovascular: denies: chest pain, dizzy spells, diaphoresis, Dyspnea on exertion, edema, irregular heart beat, left arm pain, lightheadedness, palpitations, PND, syncope, others Gastrointestinal: denies: abdomen distended, abdominal pain, blood streaked bowels, constipated, diarrhea, dysphagia, difficulty swallowing, hematemesis, melena, nausea, poor appetite, poor fluid intake, rectal bleeding, rectal pain, vomiting, others Genitourinary: denies: abnormal vagina bleeding, burning, dyspareunia, dysuria, flank pain, frequency, hematuria, incontinence, pain, , vagina discharge, urgency, others Neurological: reports: dizziness, tremors; denies: fainting, headache, left sided numbness, left sided weakness, numbness, paresthesia, pre-existing deficit, right sided numbness, right sided weakness, seizure, speech problems, tingling, weakness, others Musculoskeletal: denies: back pain, gout, joint pain, joint swelling, muscle pain, muscle stiffness, neck pain, others Integumetry: denies: bruises, change in color, change in hair/nails, dryness, laceration, lesions, lumps, rash, wounds, others Allergic/Immunocompromised: denies: Difficulty Healing, Frequent Infections, Hives, Itching, others Hematologic/Lymphatic: denies: anemia, blood clots, easy bleeding, easy bruising, swollen glands, others Endocrine: denies: excessive hunger, excessive sweating, excessive thirst, excessive urination, flushing, intolerance to cold, intolerance to heat, unexplained weight gain, unexplained weight loss, others Psychiatric: denies: anxiety, bipolar disorder, depression, hopeless, panic disorder, schizophrenia, sleepless, suicidal, others Physical Exam General Appearance: No Apparent Distress, Normal HEENT: Normal ENT Inspection, Pharynx Normal, TMs Normal Neck: Full Range of Motion, Non-Tender, Normal, Normal Inspection Respiratory: Chest Non-Tender, Lungs Clear, No Accessory Muscle Use, No Respiratory Distress, Normal Breath Sounds Cardiovascular: No Edema, No JVD, No Murmur, No Gallop, Normal Peripheral Pulses, Regular Rate/Rhythm Breast Exam: Deferred Gastrointestinal: No Organomegaly, Non Tender, No Pulsatile Mass, Normal Bowel Sounds, Soft Genitalia: Deferred Pelvic: Deferred Rectal: Deferred Extremities: No calf tenderness, Normal capillary refill, Normal inspection, Normal range of motion, Non-tender, No pedal edema Musculoskeletal : Apperance: Normal Neurologic: Alert, glass cleaning machine tender II-XII nml as Tested, No Motor Deficits, Normal Affect, Normal Mood, No Sensory Deficits Cerebellar Function: Normal Reflexes: Normal Skin: Dry, Normal Color, Warm Lymphatic: No Adenopathy Was a procedure done? Was a procedure done?: No Differential Dx Considerations may include: hypertension, dizziness, vertigo, hypotension, electrolyte imbalance, anemia X-Ray, Labs, Meds, VS Vital Signs Date Time Temp Pulse Resp B/P (MAP) Pulse Ox O2 Delivery O2 Flow Rate FiO2 10/15/24 20:25 85 10/15/24 20:12 97.9 99 16 138/97 (111) 98 Lab Test 10/15/24 21:05 10/15/24 20:37 10/15/24 20:17 Range/Units Urine Color Colorless Yellow Urine Clarity Clear Clear Urine pH 6.0 5.0-9.0 Urine Specific [place] 1.003 1.001-1.035 Urine Protein Negative Negative Urine Ketones Negative Negative Urine Blood Negative Negative /uL Urine Nitrite Negative Negative Urine Bilirubin Negative Negative Urine Urobilinogen Normal Negative mg/dL Urine Leukocyte Esterase Negative Negative /uL Urine RBC 1 0 - 4 /hpf Urine WBC 2 0 - 5 /hpf Urine Squamous Epithelial Cells Few <5 /hpf Urine Bacteria Few H None Seen /hpf Urine Glucose 2+ H Normal mg/dL White Blood Count 8.0 4.4-10.8 10^3/uL Red Blood Count 4.66 4.0-5.20 10^6/uL Hemoglobin 11.6 L 12.2-16.2 g/dL Hematocrit 35.0 L 36.0-46.0 % Mean Corpuscular Volume 75.2 L 80.0-100.0 fL Mean Corpuscular Hemoglobin 24.8 L 28.0-32.0 pg Mean Corpuscular Hemoglobin Concent 33.0 32.0-36.0 g/dL Red Cell Distribution Width 18.9 H 11.8-14.3 % Platelet Count 257 140-450 10^3/uL Mean Platelet Volume 7.7 6.9-10.8 fL Neutrophils (%) (Auto) 72.5 37.0-80.0 % Lymphocytes (%) (Auto) 18.5 10.0-50.0 % Monocytes (%) (Auto) 5.9 0.0-12.0 % Eosinophils (%) (Auto) 2.8 0.0-7.0 % Basophils (%) (Auto) 0.3 0.0-2.0 % Neutrophils # (Auto) 5.8 1.6-8.6 10 ^3/uL Lymphocytes # (Auto) 1.5 0.4-5.4 10 ^3/uL Monocytes # (Auto) 0.5 0-1.3 10 ^3/uL Eosinophils # (Auto) 0.2 0-0.8 10 ^3/uL Basophils # (Auto) 0 0-0.2 10 ^3/uL Nucleated Red Blood Cells 0.3 % Sodium Level 136 136-145 mmol/L Potassium Level 4.3 3.5-5.1 mmol/L Chloride Level 103 98-107 mmol/L Carbon Dioxide Level 25 20-31 mmol/L Anion Gap 8 5-15 Blood Urea Nitrogen 15 9-23 mg/dL Creatinine 1.38 H 0.550-1.02 mg/dL Glomerular Filtration Rate Calc 56 >90 mL/min BUN/Creatinine Ratio 10.9 10.0-20.0 Serum Glucose 269 H 74-106 mg/dL Calcium Level 10.0 8.7-10.4 mg/dL Magnesium Level 1.8 1.6-2.6 mg/dL Total Bilirubin 0.4 0.2-1.0 mg/dL Aspartate Amino Transferase (AST) 18 13-40 U/L Alanine Aminotransferase (ALT) 24 7-40 U/L Alkaline Phosphatase 119 H 46-116 U/L Total Protein 7.1 5.7-8.2 g/dL Albumin 4.4 3.2-4.8 g/dL POC Glucose 277 H 70-106 mg/dl Time of 1ST Reevaluation: 20:25 Reevaluation 1ST: Unchanged Time of 2ND Reevaluation: 21:30 Patient Education/Counseling: Diagnosis, Treatment Family Education/Counseling: No Family Present Departure 1 Departure Time of Disposition: 21:30 Impression: Primary Impression: Hyperglycemia Additional Impression: Hypertension Disposition: 01 HOME / SELF CARE / HOMELESS Condition: Stable e-Prescriptions Amlodipine Besylate (Amlodipine Besylate) 5 Mg Tab 1 TAB PO DAILY for 90 Days, #90 TAB 5 Refills Prov: ADITI GALINDO MD 10/15/24 Discharged With: Self Critical Care Note Critical Care Time?: No Stability Stability form required: No Heart Score Heart Score: Heart Score Response (Comments) Value History N/A 0 EKG N/A 0 Age N/A 0 Risk Factors N/A 0 Troponin N/A 0 Total 0 I personally scribed for ADITI GALINDO MD ([email or web address]) on 10/15/24 at 20:29. Electronically submitted by Jeremy Jacinto ([email or web address]). ADITI GALINDO MD Oct 15, 2024 20:29
[2024-10-15] MEDS ORDERED: MAGNESIUM SULFATE 1GM/100ML 100 ML IV SCH (20:30)
[2024-10-15] MEDS ORDERED: hydrALAZINE HCL 20 MG/ML VL IV ONE (20:30)
[2024-10-15 20:55] LABS: Basophils # (auto) 0 10 ^3/uL (0-0.2); Lymphocytes # (auto) 1.5 10 ^3/uL (0.4-5.4); Mean Corpuscular Volume 75.2 fL (80.0-100.0); Monocytes # (auto) 0.5 10 ^3/uL (0-1.3); Neutrophils # (auto) 5.8 10 ^3/uL (1.6-8.6)
[2024-10-15 20:56] LABS: Basophils % (auto) 0.3 % (0.0-2.0); Eosinophils # (auto) 0.2 10 ^3/uL (0-0.8); Eosinophils % (auto) 2.8 % (0.0-7.0); Hemoglobin 11.6 g/dL (12.2-16.2); Lymphocytes % (auto) 18.5 % (10.0-50.0); Mean Corpuscular Hemoglobin 24.8 pg (28.0-32.0); Monocytes % (auto) 5.9 % (0.0-12.0); Neutrophils % (auto) 72.5 % (37.0-80.0); Nucleated Red Blood Cells % 0.3 %; Platelet Count (auto) 257 10^3/uL (140-450); Red Blood Cells 4.66 10^6/uL (4.0-5.20); Red Cell Distribution Width 18.9 % (11.8-14.3)
[2024-10-15 21:12] LABS: Alanine Aminotransferase 24 U/L (7-40); Albumin 4.4 g/dL (3.2-4.8); Anion Gap 8 (5-15); Aspartate Aminotransferase 18 U/L (13-40); BUN/Creatinine Ratio 10.9 (10.0-20.0); Blood Urea Nitrogen 15 mg/dL (9-23); Carbon Dioxide 25 mmol/L (20-31); Chloride 103 mmol/L (98-107); Magnesium 1.8 mg/dL (1.6-2.6); Potassium 4.3 mmol/L (3.5-5.1)
[2024-10-15 21:13] LABS: Bilirubin, Total 0.4 mg/dL (0.2-1.0); Total Protein 7.1 g/dL (5.7-8.2)
[2024-10-15 21:20] LABS: Alkaline Phosphatase 119 U/L (46-116); Glucose 269 mg/dL (74-106); Sodium 136 mmol/L (136-145)
[2024-10-15 21:30] LABS: Urine Bacteria FEW /hpf (None Seen); Urine Blood Negative /uL (Negative); Urine Clarity Clear (Clear); Urine Color Colorless (Yellow); Urine Protein, UAD Negative (Negative); Urine Specific Gravity 1.003 (1.001-1.035); Urine Urobilinogen Normal (Negative); Urine WBC 2 /hpf (0 - 5)
[2024-10-15] MEDS ORDERED: AMLO1TAB22 PO (22:34)
--- NOTE | 2024-10-18 05:12 | ECG ---
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
== END 2024-10-16 02:14 | disposition home or self-care (01) ==
LOC: ER 19:53
DX: E11.65 Type 2 diabetes mellitus with hyperglycemia (principal); I10 Essential (primary) hypertension; R56.9 Unspecified convulsions; Z79.899 Other long term (current) drug therapy; Z88.1 Allergy status to other antibiotic agents
CPT/HCPCS: 36415; 80053; 81001; 82962; 83735; 85025; 93005

== ENCOUNTER 2024-12-15 20:02 | Emergency (ER) | payer OTHER ==
[~2024-12-15] VITALS: Ht 170.2 cm; Wt 72.9 kg
[~2024-12-15 20:02] MED LIST changes: +AMLO1TAB22 PO
[2024-12-15 21:29] VITALS: BP 132/83; PULSE 117; RESP 16; TEMP 98.5; O2SAT 96
--- NOTE | 2024-12-15 22:47 | ED.PDOC ---
Musculoskeletal HPI Comments 19 YEAR OLD FEMALE PRESENTS TO ER WITH RIGHT HAND COMPLAINT X 1 DAY. PATIENT REPORTS SHE STARTED EXPERIENCING NUMBNESS/TINGLING TO RIGHT 4TH AND 5TH FINGERS THAT STARTED WHILE SHE WAS SITTING DOWN AND WATCHING TV THIS EVENING. DENIES ANY TRAUMA/INJURY AND REPORTS SHE DID EXPERIENCE MILD PAIN TO RIGHT FOREARM AT ONSET OF SYMPTOMS THAT SHE STATES HAS SINCE FULLY SUBSIDED, DENYING ANY CURRENT PIAN. PATIENT PRESENTS TO ER AMBULATORY ON ARRIVAL, ALERT AND ORIENTED X4, WITH STEADY GAIT, IN NO DISTRESS. DENIES SKIN CHANGES, FEVER, RIGHT HAND PAIN, HEADACHE, NECK PAIN OR ANY FURTHER SYMPTOMS/COMPLAINTS Chief Complaint: Upper Extremity Time Seen by MD: 20:59 Primary Care Provider: DIEGO Reviewed Notes: Nurses Notes, Medications, Allergies Allergies: Coded Allergies: Cephalexin (Verified Allergy, Unknown, 08/23/24) Home Meds Active Scripts Amlodipine Besylate (Amlodipine Besylate) 5 Mg Tab, 1 TAB PO DAILY for 90 Days, #90 TAB 5 Refills Prov:ADITI GALINDO MD 10/15/24 Nifedipine (Nifedipine Er) 30 Mg Tab, 30 MG PO DAILY for 30 Days, #30 TAB 1 Refill Prov:AMEE LICONA NP 09/09/24 Labetalol HCl (Labetalol HCl) 200 Mg Tab, 300 MG PO Q12HR for 30 Days, #90 TAB 1 Refill Prov:AMEE LICONA NP 09/09/24 Information Source: Patient Mode of Arrival: Ambulatory Past Medical History PAST MEDICAL HISTORY: DM, HTN Surgical History: Denies all surgeries DROP WORKER History: No Pertinent DROP WORKER History Family History Family History: Unknown Social History Smoker: Non-Smoker Alcohol: Denies ETOH Use Drugs: Denies Drug Use Lives In: Home Constitutional: denies: chills, diaphoresis, fatigue, fever, malaise, sweats, weakness, others EENTM: denies: blurred vision, double vision, ear bleeding, ear discharge, ear drainage, ear pain, ear ringing, eye pain, eye redness, hearing loss, mouth pain, mouth swelling, nasal discharge, nose bleeding, nose congestion, nose pain, photophobia, tearing, throat pain, throat swelling, voice changes, others Respiratory: denies: cough, hemoptysis, orthopnea, SOB at rest, shortness of breath, SOB with excertion, stridor, wheezing, others Cardiovascular: denies: chest pain, dizzy spells, diaphoresis, Dyspnea on exertion, edema, irregular heart beat, left arm pain, lightheadedness, palpi tations, PND, syncope, others Gastrointestinal: denies: abdomen distended, abdominal pain, blood streaked bowels, constipated, diarrhea, dysphagia, difficulty swallowing, hematemesis, melena, nausea, poor appetite, poor fluid intake, rectal bleeding, rectal pain, vomiting, others Genitourinary: denies: abnormal vagina bleeding, burning, dyspareunia, dysuria, flank pain, frequency, hematuria, incontinence, pain, , vagina discharge, urgency, others Neurological: reports: others ( STATED IN HPI) Musculoskeletal: denies: back pain, gout, joint pain, joint swelling, muscle pain, muscle stiffness, neck pain, others Integumetry: denies: bruises, change in color, change in hair/nails, dryness, laceration, lesions, lumps, rash, wounds, others Allergic/Immunocompromised: denies: Difficulty Healing, Frequent Infections, Hives, Itching, others Hematologic/Lymphatic: denies: anemia, blood clots, easy bleeding, easy bruising, swollen glands, others Endocrine: denies: excessive hunger, excessive sweating, excessive thirst, excessive urination, flushing, intolerance to cold, intolerance to heat, unexplained weight gain, unexplained weight loss, others Psychiatric: denies: anxiety, bipolar disorder, depression, hopeless, panic disorder, schizophrenia, sleepless, suicidal, others Physical Exam General Appearance: No Apparent Distress HEENT: PERRL/EOMI Neck: Full Range of Motion, Non-Tender, Normal Respiratory: Chest Non-Tender, Lungs Clear, No Accessory Muscle Use, No Respiratory Distress, Normal Breath Sounds Cardiovascular: No Murmur, No Gallop, Regular Rate/Rhythm Breast Exam: Deferred Gastrointestinal: NOT DONE Genitalia: Deferred Pelvic: Deferred Rectal: Deferred Extremities: Normal capillary refill, Normal range of motion Neurologic: Alert, planning analyst II-XII nml as Tested, No Motor Deficits, Normal Affect, Normal Mood, Other (MILD DEFICIT IN ULNAR DISTRIBUTION ON RIGHT NOTED. PATIENT ABLE TO FULLY MOVE ALL FINGERS RIGHT HAND. POSITIVE TINEL'S TEST ON RIGHT. 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 Was a procedure done?: No Sedation Sedation?: No Differential Diagnosis EXT Differential Diagnosis: Fracture, Dislocation, Neurovascular injury X-Ray, Labs, Meds, VS Vital Signs Date Time Temp Pulse Resp B/P (MAP) Pulse Ox O2 Delivery O2 Flow Rate FiO2 12/15/24 21:29 117 16 96 Room Air 12/15/24 21:29 98.5 117 16 132/83 (99) 96 98.5 12/15/24 20:20 98.5 117 16 132/83 (99) 96 PATIENT NEUROVASCULARLY INTACT AND REPORTED IMPROVEMENT IN SYMPTOMS PRIOR TO DISCHARGE ADVISED ON REST/NO STRENUOUS ACTIVITY ADVISED TO FOLLOW UP WITH PCP [facility] IN 1-2 DAYS PATIENT VERBALIZED UNDERSTANDING AND AGREEABLE WITH CURRENT PLAN OF CARE ADVISED TO RETURN TO ER IMMEDIATELY IF SYMPTOMS WORSEN Time of 1ST Reevaluation: 22:20 Reevaluation 1ST: N/A Patient Education/Counseling: Diagnosis, Treatment, Prognosis, Need For Follow Up Family Education/Counseling: No Family Present Departure 1 Departure Time of Disposition: 22:42 Impression: Primary Impression: Ulnar neuropathy Qualified Codes: G56.21 - Lesion of ulnar nerve, right upper limb Disposition: 01 HOME / SELF CARE / HOMELESS Condition: Stable Discharged With: Self Critical Care Note Critical Care Time?: No Stability Stability form required: No Heart Score Heart Score: Heart Score Response (Comments) Value History N/A 0 EKG N/A 0 Age N/A 0 Risk Factors N/A 0 Troponin N/A 0 Total 0 DANISHA GARCIA Dec 15, 2024 22:46
== END 2024-12-15 23:09 | disposition home or self-care (01) ==
LOC: ER 20:02
DX: G56.21 Lesion of ulnar nerve, right upper limb (principal); E11.9 Type 2 diabetes mellitus without complications; I10 Essential (primary) hypertension; Z79.899 Other long term (current) drug therapy; Z88.1 Allergy status to other antibiotic agents

== ENCOUNTER 2025-01-26 06:25 | Emergency (ER) | payer OTHER ==
[~2025-01-26] VITALS: Ht 170.2 cm; Wt 70.9 kg
--- NOTE | 2025-01-26 06:52 | ED.PDOC ---
HPI Comments 19 year old female presents to the ED with a chief complaint of chest pain onset about 2 weeks. Patient states she was at work when she began experiencing chest pain with shortness of breath and palpitations. Patient experienced similar pain about 2 years ago, was seen by a Mixologist, workup was negative. Patient also states daughter has been sick with cough, congestion. Blood glucose was 292. PMHx DM, HTN. Denies nausea, vomiting, diarrhea, headache, dizziness, abdominal pain, dysuria, hematuria. No other symptoms or modifying factors present at this time. Chief Complaint: Chest Pain Time Seen by MD: 06:37 Primary Care Provider: DIEGO Reviewed Notes: Medications, Allergies Allergies: Coded Allergies: Cephalexin (Verified Allergy, Unknown, 08/23/24) Home Meds Active Scripts Amlodipine Besylate (Amlodipine Besylate) 5 Mg Tab, 1 TAB PO DAILY for 90 Days, #90 TAB 5 Refills Prov:ADITI GALINDO MD 10/15/24 Nifedipine (Nifedipine Er) 30 Mg Tab, 30 MG PO DAILY for 30 Days, #30 TAB 1 Refill Prov:AMEE LICONA NP 09/09/24 Labetalol HCl (Labetalol HCl) 200 Mg Tab, 300 MG PO Q12HR for 30 Days, #90 TAB 1 Refill Prov:AMEE LICONA NP 09/09/24 Information Source: Patient Mode of Arrival: Ambulatory Severity: Moderate Timing: Weeks Duration: Since onset Prehospital treatment: None Location: Chest (L) Radiation: No Radiation Quality: Sharp Onset: With Light Exertion Cardiac Risk Factors: Hyperlipidemia, HTN, Diabetes PE Risk Factors: None History of: Similar pain in past Modifying Factors: Nothing Associated Signs and Symptoms: SOB, Palpitations Past Medical History PAST MEDICAL HISTORY: DM, HTN Surgical History: Tonsillectomy PHOTOGRAPHIC PLATE 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 History: No Pertinent PHOTOGRAPHIC PLATE MAKER History Family History Family History: Unknown Social History Smoker: Non-Smoker Alcohol: Denies ETOH Use Drugs: Denies Drug Use Lives In: Home Constitutional: denies: chills, diaphoresis, fatigue, fever, malaise, sweats, weakness, others EENTM: denies: blurred vision, double vision, ear bleeding, ear discharge, ear drainage, ear pain, ear ringing, eye pain, eye redness, hearing loss, mouth pain, mouth swelling, nasal discharge, nose bleeding, nose congestion, nose pain , photophobia, tearing, throat pain, throat swelling, voice changes, others Respiratory: reports: shortness of breath; denies: cough, hemoptysis, orthopnea, SOB at rest, SOB with excertion, stridor, wheezing, others Cardiovascular: reports: chest pain, palpitations; denies: dizzy spells, diaphoresis, Dyspnea on exertion, edema, irregular heart beat, left arm pain, lightheadedness, PND, syncope, others Gastrointestinal: denies: abdomen distended, abdominal pain, blood streaked bowels, constipated, diarrhea, dysphagia, difficulty swallowing, hematemesis, melena, nausea, poor appetite, poor fluid intake, rectal bleeding, rectal pain, vomiting, others Genitourinary: denies: abnormal vagina bleeding, burning, dyspareunia, dysuria, flank pain, frequency, hematuria, incontinence, pain, , vagina discharge, urgency, others Neurological: denies: dizziness, fainting, headache, left sided numbness, left sided weakness, numbness, paresthesia, pre-existing deficit, right sided numbness, right sided weakness, seizure, speech problems, tingling, tremors, weakness, others Musculoskeletal: denies: back pain, gout, joint pain, joint swelling, muscle pain, muscle stiffness, neck pain, others Integumetry: denies: bruises, change in color, change in hair/nails, dryness, laceration, lesions, lumps, rash, wounds, others Allergic/Immunocompromised: denies: Difficulty Healing, Frequent Infections, Hives, Itching, others Hematologic/Lymphatic: denies: anemia, blood clots, easy bleeding, easy bruising, swollen glands, others Endocrine: denies: excessive hunger, excessive sweating, excessive thirst, excessive urination, flushing, intolerance to cold, intolerance to heat, unexplained weight gain, unexplained weight loss, others Psychiatric: denies: anxiety, bipolar disorder, depression, hopeless, panic disorder, schizophrenia, sleepless, suicidal, others All Other Systems: Reviewed and Negative Physical Exam General Appearance: No Apparent Distress, Normal HEENT: Normal ENT Inspection, Pharynx Normal, TMs Normal Neck: Full Range of Motion, Non-Tender, Normal, Normal Inspection Respiratory: Chest Non-Tender, Lungs Clear, No Accessory Muscle Use, No Respiratory Distress, Normal Breath Sounds Cardiovascular: No Edema, No JVD, No Murmur, No Gallop, Normal Peripheral Pulses, Regular Rate/Rhythm Breast Exam: Deferred Gastrointestinal: No Organomegaly, Non Tender, No Pulsatile Mass, Normal Bowel Sounds, Soft Genitalia: Deferred Pelvic: Deferred Rectal: Deferred Extremities: No calf tenderness, Normal capillary refill, Normal inspection, Normal range of motion, Non-tender, No pedal edema Musculoskeletal : Apperance: Normal Neurologic: Alert, counter roller II-XII nml as Tested, No Motor Deficits, Normal Affect, Normal Mood, No Sensory Deficits Cerebellar Function: Normal Reflexes: Normal Skin: Dry, Normal Color, Warm Lymphatic: No Adenopathy Was a procedure done? Was a procedure done?: No CP Differential Dx Differential Diagnosis: Angina, MAT, [place] Differential Diagnosis: HTN Essential Differential Diagnosis: Gastritis, Myocardial Infarction X-Ray, Labs, Meds, VS Vital Signs Date Time Temp Pulse Resp B/P (MAP) Pulse Ox O2 Delivery O2 Flow Rate FiO2 01/26/25 07:45 91 17 97 Room Air* 0 21 01/26/25 07:45 98.4 91 14 131/72 (91) 97 98.4 01/26/25 07:30 85 01/26/25 06:33 80 01/26/25 06:29 99.1 87 16 133/84 (100) 98 99.1 Lab Test 01/26/25 07:15 01/26/25 06:40 01/26/25 06:30 Range/Units Troponin I High Sensitivity < 3 L < 3 L </=34 ng/L POC Glucose 292 H 70-106 mg/dl White Blood Count 6.8 4.4-10.8 10^3/uL Red Blood Count 4.06 4.0-5.20 10^6/uL Hemoglobin 11.4 L 12.2-16.2 g/dL Hematocrit 34.0 L 36.0-46.0 % Mean Corpuscular Volume 83.8 80.0-100.0 fL Mean Corpuscular Hemoglobin 28.0 28.0-32.0 pg Mean Corpuscular Hemoglobin Concent 33.4 32.0-36.0 g/dL Red Cell Distribution Width 13.1 11.8-14.3 % Platelet Count 312 140-450 10^3/uL Mean Platelet Volume 8.0 6.9-10.8 fL Neutrophils (%) (Auto) 71.7 37.0-80.0 % Lymphocytes (%) (Auto) 21.2 10.0-50.0 % Monocytes (%) (Auto) 5.5 0.0-12.0 % Eosinophils (%) (Auto) 1.3 0.0-7.0 % Basophils (%) (Auto) 0.3 0.0-2.0 % Neutrophils # (Auto) 4.9 1.6-8.6 10 ^3/uL Lymphocytes # (Auto) 1.4 0.4-5.4 10 ^3/uL Monocytes # (Auto) 0.4 0-1.3 10 ^3/uL Eosinophils # (Auto) 0.1 0-0.8 10 ^3/uL Basophils # (Auto) 0 0-0.2 10 ^3/uL Nucleated Red Blood Cells 0.0 % Sodium Level 138 136-145 mmol/L Potassium Level 3.7 3.5-5.1 mmol/L Chloride Level 105 98-107 mmol/L Carbon Dioxide Level 25 20-31 mmol/L Anion Gap 8 5-15 Blood Urea Nitrogen 15 9-23 mg/dL Creatinine 1.34 H 0.550-1.02 mg/dL Glomerular Filtration Rate Calc 58 >90 mL/min BUN/Creatinine Ratio 11.2 10.0-20.0 Serum Glucose 301 H 74-106 mg/dL Calcium Level 9.7 8.7-10.4 mg/dL Current Medications Medications (Trade) Dose Ordered Sig/Gris Route Start Time Stop Time Status Last Admin Famotidine (Pepcid Tablet) 20 mg ONCE ONCE PO 01/26/25 06:45 01/26/25 06:46 DC 01/26/25 07:41 Ondansetron HCl (Zofran Po) 4 mg ONCE ONCE PO 01/26/25 06:45 01/26/25 06:46 DC 01/26/25 07:41 Al Hydrox/Mg Hydrox/Simethicone (Maalox Plus) 15 ml ONCE ONCE PO 01/26/25 06:45 01/26/25 06:46 DC 01/26/25 07:[address] [address] Ph: [phone] DIAGNOSTIC IMAGING Diagnostic Imaging Report : [id number] Signed PATIENT: MICHELINE COXCCT: [id number] UNIT: [id number] : 2005 LOC: ER ROOM / BED: / AGE / SEX: 19 / F ADM STATUS: REG ER SERVICE [id number] ORDERING PHYSICIAN: MIAN MARTIN MD PROCEDURE(s): CXRP - CHEST PORTABLE REASON: chest pain ORDER NUMBER(s): [id number], ACCESSION NUMBER(s): [id number] EXAM: XR Chest, 1 View CLINICAL INDICATION: chest pain TECHNIQUE: Frontal view of the chest. COMPARISON: XY CHEST PORTABLE on DOS: 09/08/24 FINDINGS: LUNGS AND PLEURAL SPACES: Unremarkable. No consolidation. No pneumothorax. HEART: Unremarkable. No cardiomegaly. MEDIASTINUM: Unremarkable. Normal mediastinal contour. BONES/JOINTS: Unremarkable. No acute fracture. OTHER FINDINGS: . None. IMPRESSION: No acute cardiopulmonary process. ATED BY: KARY NORTON MD DICTATED DATE/TIME: 01/26/25711 SIGNED BY: KARY NORTON MD SIGNED DATE/TIME: 01/26/25711 CC: Time of 1ST Reevaluation: 07:07 Reevaluation 1ST: Unchanged Patient Education/Counseling: Diagnosis, Treatment, Prognosis Family Education/Counseling: No Family Present Additional Information The following tests were ordered, and results were reviewed by me: BMP, CBC, TROP-x3, UA, XY CHEST, EKG I reviewed and agreed with the following test results read by other providers: XY CHEST I discussed treatment and results with medical personnel and: Patient Comprehensive systems review obtained and negative except for what is stated in the HPI. Departure 1 Departure Time of Disposition: 08:36 (Patient presented with chest pain that was concerning for possible STEMI, ACS, PE, Pneumonia, Muscle Strain, COPD, Dissection. Data: 1. I ordered and reviewed the result of at least 3 labs including a CBC, BMP, and Troponin. 2. I independently interpreted the following tests: EKG which shows normal sinus rhythm and Chest X-ray which shows a benign chest.Risk:This patient presented with a high risk of morbidity due to further diagnostic testing or treatment and may suffer from an acute cardiac or respiratory disorder. After review of all the data patient is unlikely to have a pe , dissection, and is low risk for acs. Patient is stable at this time.Workup so far is benign and patient will be discharged with outpatient followup. ) Impression: Primary Impression: Acute chest pain Additional Impressions: Hypertension Qualified Codes: I10 - Essential (primary) hypertension Diabetes Qualified Codes: E10.9 - Type 1 diabetes mellitus without complications Disposition: HOME / SELF CARE / HOMELESS Condition: Stable Additional Instructions: You presented today with chest pain. Your workup today was benign including labs, troponin, EKG, chest x-ray. Your pain may be from musculoskeletal strain, acid reflux, anxiety, or many other factors. It is important to follow up with your regular doctor within 1 week. If your symptoms worsen or you have any other concerns please return to the emergency room. Discharged With: Self Critical Care Note Critical Care Time?: No Stability Stability form required: No Heart Score Heart Score: Heart Score Response (Comments) Value History Slightly Suspicious 0 EKG Normal 0 Age <45 0 Risk Factors 1 or 2 risk factors 1 Troponin Normal limit 0 Total 1 I personally scribed for MIAN MARTIN MD ([email or web address]) on 01/26/25 at 06:52. Electronically submitted by Stefania Swanson ([email or web address]). I personally scribed for MIAN MARTIN MD ([email or web address]) on 01/26/25 at 06:55. Electronically submitted by Stefania Swanson ([email or web address]). I personally scribed for MIAN MARTIN MD ([email or web address]) on 01/26/25 at 06:56. Electronically submitted by Stefania Swanson ([email or web address]). I personally scribed for MIAN MARTIN MD ([email or web address]) on 01/26/25 at 08:12. Electronically submitted by Stefania Swanson ([email or web address]). MIAN MARTIN MD Jan 26, 2025 06:52
--- NOTE | 2025-01-26 07:03 | ECG ---
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
[2025-01-26 07:07] LABS: Basophils # (auto) 0 10 ^3/uL (0-0.2); Basophils % (auto) 0.3 % (0.0-2.0); Eosinophils # (auto) 0.1 10 ^3/uL (0-0.8); Eosinophils % (auto) 1.3 % (0.0-7.0); Hemoglobin 11.4 g/dL (12.2-16.2); Lymphocytes # (auto) 1.4 10 ^3/uL (0.4-5.4); Lymphocytes % (auto) 21.2 % (10.0-50.0); Mean Corpuscular Hgb Conc. 33.4 g/dL (32.0-36.0); Mean Corpuscular Volume 83.8 fL (80.0-100.0); Monocytes # (auto) 0.4 10 ^3/uL (0-1.3); Monocytes % (auto) 5.5 % (0.0-12.0); Neutrophils # (auto) 4.9 10 ^3/uL (1.6-8.6); Neutrophils % (auto) 71.7 % (37.0-80.0); Platelet Count (auto) 312 10^3/uL (140-450); Red Blood Cells 4.06 10^6/uL (4.0-5.20); Red Cell Distribution Width 13.1 % (11.8-14.3); White Blood Cell 6.8 10^3/uL (4.4-10.8)
--- NOTE | 2025-01-26 07:15 | DVH ---
EXAM: XR Chest, 1 View CLINICAL INDICATION: chest pain TECHNIQUE: Frontal view of the chest. COMPARISON: XY CHEST PORTABLE on DOS: 09/08/24 FINDINGS: LUNGS AND PLEURAL SPACES: Unremarkable. No consolidation. No pneumothorax. HEART: Unremarkable. No cardiomegaly. MEDIASTINUM: Unremarkable. Normal mediastinal contour. BONES/JOINTS: Unremarkable. No acute fracture. OTHER FINDINGS: . None. IMPRESSION: No acute cardiopulmonary process.
[2025-01-26 07:16] LABS: Anion Gap 8 (5-15); Carbon Dioxide 25 mmol/L (20-31); Chloride 105 mmol/L (98-107); Potassium 3.7 mmol/L (3.5-5.1); Sodium 138 mmol/L (136-145)
[2025-01-26 07:17] LABS: Calcium 9.7 mg/dL (8.7-10.4)
[2025-01-26 07:22] LABS: BUN/Creatinine Ratio 11.2 (10.0-20.0); Blood Urea Nitrogen 15 mg/dL (9-23)
[2025-01-26 07:23] LABS: Glucose 301 mg/dL (74-106)
[2025-01-26] MEDS: MAALOX PLUS or MAALOX 30 ML PO ONE (07:41)
[2025-01-26] MEDS: ONDANSETRON ODT 4 MG TAB PO ONE (07:41)
[2025-01-26] MEDS: FAMOTIDINE 20 MG TAB PO ONE (07:41)
[2025-01-26 07:45] VITALS: PULSE 91; RESP 17; O2SAT 97
[2025-01-26 08:55] VITALS: BP 119/86; PULSE 94; RESP 18; TEMP 98.1; O2SAT 100
== END 2025-01-26 08:56 | disposition home or self-care (01) ==
LOC: ER 06:25
DX: R07.9 Chest pain, unspecified (principal); R06.02 Shortness of breath; R00.2 Palpitations; E11.9 Type 2 diabetes mellitus without complications; I10 Essential (primary) hypertension; Z79.4 Long term (current) use of insulin; Z79.899 Other long term (current) drug therapy; Z90.89 Acquired absence of other organs; Z88.1 Allergy status to other antibiotic agents
CPT/HCPCS: 36415; 71045; 80048; 82947; 84484; 85025; 93005; 99285; Q0162; 82962

== ENCOUNTER 2025-07-02 16:15 | Emergency (ER) | payer OTHER ==
[~2025-07-02] VITALS: Ht 170.2 cm; Wt 72.7 kg
--- NOTE | 2025-07-02 16:38 | ED.PDOC ---
History of Present Illness HPI Comments 19 y.o female presents to the ED for an evaluation of HBP that started a couple days ago. Patient has a history of preeclampsia during a previous but was later diagnosed with HTN and is on medication. Despite maintaining a healthy diet and being compliant with her medication, the elevated blood pres sure episodes continue to occur and is associated with a complaint of dizziness and a generalized headache. Her PCP advised her to seek a higher level of care at the ED after she called to report these symptoms. Patient was tachycardic at arrival. Chief Complaint: High Blood Pressure Time Seen by MD: 16:30 Primary Care Provider: DIEGO Reviewed Notes: Nurses Notes, Medications, Allergies Allergies: Coded Allergies: Cephalexin (Verified Allergy, Unknown, 08/23/24) Home Meds Active Scripts Amlodipine Besylate (Amlodipine Besylate) 5 Mg Tab, 1 TAB PO DAILY for 90 Days, #90 TAB 5 Refills Prov:ADITI GALINDO MD 10/15/24 Nifedipine (Nifedipine Er) 30 Mg Tab, 30 MG PO DAILY for 30 Days, #30 TAB 1 Refill Prov:AMEE LICONA NP 09/09/24 Labetalol HCl (Labetalol HCl) 200 Mg Tab, 300 MG PO Q12HR for 30 Days, #90 TAB 1 Refill Prov:AMEE LICONA NP 09/09/24 Information Source: Patient Mode of Arrival: Ambulatory Severity: Moderate Timing: Days Duration: Since onset Prehospital treatment: Treatment Past Medical History PAST MEDICAL HISTORY: DM, HTN Surgical History: Tonsillectomy COUNTY TREASURER History: No Pertinent COUNTY TREASURER History Family History Family History: Unknown Social History Smoker: Non-Smoker Alcohol: Denies ETOH Use Drugs: Denies Drug Use Lives In: Home Constitutional: denies: chills, diaphoresis, fatigue, fever, malaise, sweats, weakness, others EENTM: denies: blurred vision, double vision, ear bleeding, ear discharge, ear drainage, ear pain, ear ringing, eye pain, eye redness, hearing loss, mouth pain, mouth swelling, nasal discharge, nose bleeding, nose congestion, nose pain, photophobia, tearing, throat pain, throat swelling, voice changes, others Respiratory: denies: cough, hemoptysis, orthopnea, SOB at rest, shortness of breath, SOB with excertion, stridor, wheezing, others Cardiovascular: denies: chest pain, dizzy spells, diaphoresis, Dyspnea on exertion, edema, irregular heart beat, left arm pain, lightheadedness, palpitations, PND, syncope, others Gastrointestinal: denies: abdomen distended, abdominal pain, blood streaked bowels, constipated, diarrhea, dysphagia, difficulty swallowing, hematemesis, melena, nausea, poor appetite, poor fluid intake, rectal bleeding, rectal pain, vomiting, others Genitourinary: denies: abnormal vagina bleeding, burning, dyspareunia, dysuria, flank pain, frequency, hematuria, incontinence, pain, , vagina discharge, urgency, others Neurological: reports: dizziness, headache; denies: fainting, left sided numbness, left sided weakness, numbness, paresthesia, pre-existing deficit, right sided numbness, right sided weakness, seizure, speech problems, tingling, tremors, weakness, others Musculoskeletal: denies: back pain, gout, joint pain, joint swelling, muscle pain, muscle stiffness, neck pain, others Integumetry: denies: bruises, change in color, change in hair/nails, dryness, laceration, lesions, lumps, rash, wounds, others Allergic/Immunocompromised: denies: Difficulty Healing, Frequent Infections, Hives, Itching, others Hematologic/Lymphatic: denies: anemia, blood clots, easy bleeding, easy bruising, swollen glands, others Endocrine: denies: excessive hunger, excessive sweating, excessive thirst, excessive urination, flushing, intolerance to cold, intolerance to heat, unexplained weight gain, unexplained weight loss, others Psychiatric: denies: anxiety, bipolar disorder, depression, hopeless, panic disorder, schizophrenia, sleepless, suicidal, others All Other Systems: Reviewed and Negative Physical Exam General Appearance: Mild Distress (Patient was in moderate distress due to anxiety related to her events.), Normal HEENT: Normal ENT Inspection, Pharynx Normal, TMs Normal Neck: Full Range of Motion, Non-Tender, Normal, Normal Inspection Respiratory: Chest Non-Tender, Lungs Clear, No Accessory Muscle Use, No Respiratory Distress, Normal Breath Sounds Cardiovascular: No Edema, No JVD, No Murmur, No Gallop, Normal Peripheral Pulses, Tachycardia Breast Exam: Deferred Gastrointestinal: No Organomegaly, Non Tender, No Pulsatile Mass, Normal Bowel Sounds, Soft Genitalia: Deferred Pelvic: Deferred Rectal: Deferred Extremities: No calf tenderness, Normal capillary refill, Normal inspection, Normal range of motion, Non-tender, No pedal edema Neurologic: Alert, No Motor Deficits, Normal Affect, Normal Mood, No Sensory Deficits Cerebellar Function: NOT DONE Reflexes: NOT DONE Skin: Dry, Normal Color, Warm Lymphatic: No Adenopathy Was a procedure done? Was a procedure done?: No Differential Dx Considerations may include: Chronic hypertension, Essential hypertension, Janiya syndrome, Anxiety disorders, Preeclampsia superimposed on chronic hypertension X-Ray, Labs, Meds, VS Vital Signs Date Time Temp Pulse Resp B/P (MAP) Pulse Ox O2 Delivery O2 Flow Rate FiO2 07/02/25 16:17 98.2 125 14 141/84 100 98.2 Lab Test 07/02/25 17:17 07/02/25 17:02 Range/Units Urine Color Colorless Yellow Urine Clarity Clear Clear Urine pH 5.5 5.0-9.0 Urine Specific [place] 1.005 1.001-1.035 Urine Protein Negative Negative Urine Ketones Negative Negative Urine Blood Negative Negative /uL Urine Nitrite Negative Negative Urine Bilirubin Negative Negative Urine Urobilinogen Normal Negative mg/dL Urine Leukocyte Esterase Negative Negative /uL Urine RBC 1 0 - 4 /hpf Urine Microscopic WBC < 1 0-5 /HPF Urine Squamous Epithelial Cells Few <5 /hpf Urine Bacteria Few H None Seen /hpf Urine Glucose Normal Normal mg/dL Urine Test Negative Negative White Blood Count 7.1 4.4-10.8 10^3/uL Red Blood Count 4.91 4.0-5.20 10^6/uL Hemoglobin 12.9 12.2-16.2 g/dL Hematocrit 37.9 36.0-46.0 % Mean Corpuscular Volume 77.2 L 80.0-100.0 fL Mean Corpuscular Hemoglobin 26.3 L 28.0-32.0 pg Mean Corpuscular Hemoglobin Concent 34.0 32.0-36.0 g/dL Red Cell Distribution Width 14.3 11.8-14.3 % Platelet Count 308 140-450 10^3/uL Mean Platelet Volume 8.0 6.9-10.8 fL Neutrophils (%) (Auto) 69.1 37.0-80.0 % Lymphocytes (%) (Auto) 24.3 10.0-50.0 % Monocytes (%) (Auto) 5.2 0.0-12.0 % Eosinophils (%) (Auto) 1.0 0.0-7.0 % Basophils (%) (Auto) 0.4 0.0-2.0 % Neutrophils # (Auto) 4.9 1.6-8.6 10 ^3/uL Lymphocytes # (Auto) 1.7 0.4-5.4 10 ^3/uL Monocytes # (Auto) 0.4 0-1.3 10 ^3/uL Eosinophils # (Auto) 0.1 0-0.8 10 ^3/uL Basophils # (Auto) 0 0-0.2 10 ^3/uL Nucleated Red Blood Cells 0.1 % Sodium Level 138 136-145 mmol/L Potassium Level 3.9 3.5-5.1 mmol/L Chloride Level 102 98-107 mmol/L Carbon Dioxide Level 26 20-31 mmol/L Anion Gap 10 5-15 Blood Urea Nitrogen 12 9-23 mg/dL Creatinine 1.21 H 0.550-1.02 mg/dL Glomerular Filtration Rate Calc 65 >90 mL/min BUN/Creatinine Ratio 9.9 L 10.0-20.0 Serum Glucose 173 H 74-106 mg/dL Calcium Level 9.8 8.7-10.4 mg/dL Troponin I High Sensitivity < 3 L </=34 ng/L X-Ray, Labs, Meds, VS Comment All studies performed in the ED were evaluated by me personally. Serum studies were unremarkable for any systemic concerns as was urine. EKG revealed a sinus tachycardia with a rate of 101. Biatrial enlargement was noted. Possible RVH with probable normal early repolarization pattern noted. GA interval 164 and QT interval of 341. . Patient's blood pressure was was elevated to arrange that needed to be addressed pharmaceutical a today. Patient will be sent home with some emergent medication and advised to follow up with her primary care provider for discussions related to blood pressure concerns. Time of 1ST Reevaluation: 17:57 Reevaluation 1ST: Improved Consultation: PCP, Cardiology Patient Education/Counseling: Diagnosis, Treatment, Prognosis Family Education/Counseling: Diagnosis, Treatment, No Family Present SEPSIS Sepsis Screen Date sepsis recognized/suspect: Jul 02, 2025 Time Sepsis recognized/suspect: 1616 Recent Procedure: No On Antibiotic Therapy: No Respiratory Rate >20: No Heart Rate >90: Yes Temp<36 C (96.8 F) or >38.3 C: No SBP <90 or MAP <65 mmHG: No New Acute Mental Status Change: No Is the patient on CPAP, BIPAP,: No Physician Orders Electrocardigram (07/02/25 16:33) Vital Signs Date Time Temp Pulse Resp B/P (MAP) Pulse Ox O2 Delivery O2 Flow Rate FiO2 07/02/25 16:17 98.2 125 14 141/84 100 98.2 Laboratory Tests Test 07/02/25 17:02 White Blood Count 7.1 10^3/uL (4.4-10.8) Departure 1 Departure Time of Disposition: 17:58 Impression: Primary Impression: Elevated blood pressure reading Disposition: HOME / SELF CARE / HOMELESS Condition: Stable Additional Instructions: Advise utilizing emergent medication as needed for symptomatic relief. Patient should follow up with primary care provider for discussions related to medication management of blood pressure concerns. Patient should be maintaining a blood pressure journal for conversations with her primary care provider. e-Prescriptions Clonidine Hydrochloride (Clonidine Hcl) 0.1 Mg Tab 1 TAB PO Q12HP PRN, #15 TAB 0 Refills To be used if systolic pressure is above 160 or diastolic pressure is above 90. Prov: KARY DELGADO PAC 07/02/25 Discharged With: Self, Friend Critical Care Note Critical Care Time?: No Stability Stability form required: No Heart Score Heart Score: Heart Score Response (Comments) Value History Slightly Suspicious 0 EKG Normal 0 Age <45 0 Risk Factors 1 or 2 risk factors 1 Troponin Normal limit 0 Total 1 I personally scribed for KARY DELGADO PAC ([email or web address]) on 07/02/25 at 16:38. Electronically submitted by Kathryn Quintero ([facility]). KARY DELGADO PAC Jul 02, 2025 16:38
[2025-07-02 17:18] LABS: Hemoglobin 12.9 g/dL (12.2-16.2); Mean Corpuscular Hemoglobin 26.3 pg (28.0-32.0)
[2025-07-02 17:20] LABS: Chloride 102 mmol/L (98-107); Hematocrit 37.9 % (36.0-46.0); Mean Corpuscular Volume 77.2 fL (80.0-100.0); Nucleated Red Blood Cells % 0.1 %; Potassium 3.9 mmol/L (3.5-5.1); Sodium 138 mmol/L (136-145)
[2025-07-02 17:21] LABS: Anion Gap 10 (5-15); Calcium 9.8 mg/dL (8.7-10.4); Carbon Dioxide 26 mmol/L (20-31)
[2025-07-02 17:26] LABS: BUN/Creatinine Ratio 9.9 (10.0-20.0); Blood Urea Nitrogen 12 mg/dL (9-23)
[2025-07-02 17:32] LABS: Urine Protein, UAD Negative (Negative)
[2025-07-02 17:34] LABS: Glucose 173 mg/dL (74-106)
[2025-07-02] MEDS ORDERED: CLON0.1T PO (18:01)
[2025-07-02 19:36] VITALS: BP 140/75; PULSE 109; RESP 18; TEMP 97.7; O2SAT 97
--- NOTE | 2025-07-05 10:47 | ECG ---
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
== END 2025-07-02 19:40 | disposition home or self-care (01) ==
LOC: ER 16:17
DX: I10 Essential (primary) hypertension (principal); E11.9 Type 2 diabetes mellitus without complications; Z79.899 Other long term (current) drug therapy; Z88.1 Allergy status to other antibiotic agents; Z87.59 Personal history of other complications of pregnancy, childbirth and the puerperium; Z90.89 Acquired absence of other organs
CPT/HCPCS: 36415; 80048; 81001; 81025; 84484; 85025; 93005

== ENCOUNTER 2025-08-04 07:41 | Inpatient (IN) | payer OTHER ==
[~2025-08-04] VITALS: Ht 170.2 cm; Wt 72.3 kg
[~2025-08-04 07:41] MED LIST changes: +CLON0.1T PO
--- NOTE | 2025-08-04 07:56 | ED.PDOC ---
History of Present Illness HPI Comments 19-year-old female presents to the ER with a prior medical history of hypertension, type 1 diabetes in the chief complaint of chest pain. Patient reports on having sharp sternal chest pain associated with shortness a breath and has been worsening for the past four days. Patient does have an appointment with her PCP at the end of the month. Denies any other symptoms at this time. Denies chills, fever, N/V/D. No other associated symptoms, modifiers, recent injuries or sick contacts present at this time. Chief Complaint: Chest Pain Time Seen by MD: 07:55 Primary Care Provider: MartinOA Reviewed Notes: Nurses Notes, Medications, Allergies Allergies: Coded Allergies: Cephalexin (Verified Allergy, Unknown, 08/23/24) Home Meds Active Scripts Clonidine Hydrochloride (Clonidine Hcl) 0.1 Mg Tab, 1 TAB PO Q12HP PRN, #15 TAB 0 Refills To be used if systolic pressure is above 160 or diastolic pressure is above 90. Prov:KARY DELGADO 07/02/25 Amlodipine Besylate (Amlodipine Besylate) 5 Mg Tab, 1 TAB PO DAILY for 90 Days, #90 TAB 5 Refills Prov:ADITI GALINDO MD 10/15/24 Nifedipine (Nifedipine Er) 30 Mg Tab, 30 MG PO DAILY for 30 Days, #30 TAB 1 Refill Prov:AMEE LICONA NP 09/09/24 Labetalol HCl (Labetalol HCl) 200 Mg Tab, 300 MG PO Q12HR for 30 Days, #90 TAB 1 Refill Prov:AMEE LICONA NP 09/09/24 Information Source: Patient Mode of Arrival: Ambulatory Severity: Moderate Timing: Days Duration: Since onset, Days Prehospital treatment: None Past Medical History PAST MEDICAL HISTORY: DM, HTN Surgical History: Tonsillectomy TECHNICAL PROFESSIONAL History: No Pertinent TECHNICAL PROFESSIONAL History Family History Family History: Reviewed,noncontributory to illness, Unknown Social History Smoker: Non-Smoker Alcohol: Denies ETOH Use Drugs: Denies Drug Use Lives In: Home Constitutional: denies: chills, diaphoresis, fatigue, fever, malaise, sweats, weakness, others EENTM: denies: blurred vision, double vision, ear bleeding, ear discharge, ear drainage, ear pain, ear ringing, eye pain, eye redness, hearing loss, mouth pain, mouth swelling, nasal discharge, nose bleeding, nose congestion, nose pain, photophobia, tearing, throat pain, throat swelling, voice changes, others Respiratory: reports: shortness of breath; denies: cough, hemoptysis, orthopnea, SOB at rest, SOB with excertion, stridor, wheezing, others Cardiovascular: reports: chest pain; denies: dizzy spells, diaphoresis, Dyspnea on exertion, edema, irregular heart beat, left arm pain, lightheadedness, palpitations, PND, syncope, others Gastrointestinal: denies: abdomen distended, abdominal pain, blood streaked bowels, constipated, diarrhea, dysphagia, difficulty swallowing, hematemesis, melena, nausea, poor appetite, poor fluid intake, rectal bleeding, rectal pain, vomiting, others Genitourinary: denies: abnormal vagina bleeding, burning, dyspareunia, dysuria, flank pain, frequency, hematuria, incontinence, pain, , vagina discharge, urgency, others Neurological: denies: dizziness, fainting, headache, left sided numbness, left sided weakness, numbness, paresthesia, pre-existing deficit, right sided numbness, right sided weakness, seizure, speech problems, tingling, tremors, weakness, others Musculoskeletal: denies: back pain, gout, joint pain, joint swelling, muscle pa in, muscle stiffness, neck pain, others Integumetry: denies: bruises, change in color, change in hair/nails, dryness, laceration, lesions, lumps, rash, wounds, others Allergic/Immunocompromised: denies: Difficulty Healing, Frequent Infections, Hives, Itching, others Hematologic/Lymphatic: denies: anemia, blood clots, easy bleeding, easy bruising, swollen glands, others Endocrine: denies: excessive hunger, excessive sweating, excessive thirst, excessive urination, flushing, intolerance to cold, intolerance to heat, unexplained weight gain, unexplained weight loss, others Psychiatric: denies: anxiety, bipolar disorder, depression, hopeless, panic disorder, schizophrenia, sleepless, suicidal, others All Other Systems: Reviewed and Negative Physical Exam General Appearance: Moderate Distress, Normal HEENT: Normal ENT Inspection, Pharynx Normal, TMs Normal Neck: Full Range of Motion, Non-Tender, Normal, Normal Inspection Respiratory: Chest Non-Tender, Lungs Clear, No Accessory Muscle Use, No Respiratory Distress, Normal Breath Sounds Cardiovascular: No Edema, No JVD, No Murmur, No Gallop, Normal Peripheral Pulses, Regular Rate/Rhythm Breast Exam: Deferred Gastrointestinal: No Organomegaly, Non Tender, No Pulsatile Mass, Normal Bowel Sounds, Soft Genitalia: Deferred Pelvic: Deferred Rectal: Deferred Extremities: No calf tenderness, Normal capillary refill, Normal inspection, Normal range of motion, Non-tender, No pedal edema Musculoskeletal : Apperance: Normal Neurologic: Alert, block cleaner II-XII nml as Tested, No Motor Deficits, Normal Affect, Normal Mood, No Sensory Deficits Cerebellar Function: Normal Reflexes: Normal Skin: Dry, Normal Color, Warm Peripheral Pulses: 3+ Radial (R), 3+ Radial (L) Lymphatic: No Adenopathy Was a procedure done? Was a procedure done?: No EKG EKG : Pulse Rate (adult): 97 [place]: Normal Cardiac Rhythm: NSR Block: None Hypertrophy: None ST: Normal Differential Dx Considerations may include: Anemia Electrolyte imbalance X-Ray, Labs, Meds, VS Vital Signs Date Time Temp Pulse Resp B/P (MAP) Pulse Ox O2 Delivery O2 Flow Rate FiO2 08/04/25 08:32 108 18 99 Room Air 08/04/25 08:32 108 18 105/73 (84) 100 08/04/25 07:56 97 08/04/25 07:48 97.3 100 16 142/88 99 97.3 08/04/25 07:48 97 Lab Test 08/04/25 08:41 08/04/25 07:58 Range/Units Urine Color Light-yellow Yellow Urine Clarity Clear Clear Urine pH 6.0 5.0-9.0 Urine Specific [place] 1.019 1.001-1.035 Urine Protein Trace H Negative Urine Ketones Negative Negative Urine Blood Negative Negative /uL Urine Nitrite Negative Negative Urine Bilirubin Negative Negative Urine Urobilinogen Normal Negative mg/dL Urine Leukocyte Esterase Negative Negative /uL Urine RBC 4 0 - 4 /hpf Urine Microscopic WBC 2 0-5 /HPF Urine Squamous Epithelial Cells Few <5 /hpf Urine Bacteria Few H None Seen /hpf Urine Glucose 4+ H Normal mg/dL D-Dimer, Quantitative 2.49 H 0.0-0.49 mg/L FEU Sodium Level 137 136-145 mmol/L Potassium Level 4.2 3.5-5.1 mmol/L Chloride Level 102 98-107 mmol/L Carbon Dioxide Level 27 20-31 mmol/L Anion Gap 8 5-15 Blood Urea Nitrogen 11 9-23 mg/dL Creatinine 1.24 H 0.550-1.02 mg/dL Glomerular Filtration Rate Calc 64 >90 mL/min BUN/Creatinine Ratio 8.9 L 10.0-20.0 Serum Glucose 248 H 74-106 mg/dL Calcium Level 9.3 8.7-10.4 mg/dL Troponin I High Sensitivity < 3 L </=34 ng/L Patient alert. Complaining of chest discomfort. Vitals stable. Answering questions. Saturation pristine on room air. Respiratory rate within normal limits. Heart rate on clinical examination within normal limits. EKG reviewed does not show any acute changes. D-dimer elevated. Was given Lovenox. Blood sugar elevated. Explained to the patient. Continue monitoring. Time of 1ST Reevaluation: 08:25 Reevaluation 1ST: Improved Patient Education/Counseling: Diagnosis, Treatment, Prognosis Family Education/Counseling: No Family Present SEPSIS Sepsis Screen Physician Orders Electrocardigram (08/04/25 07:47) Vital Signs Date Time Temp Pulse Resp B/P (MAP) Pulse Ox O2 Delivery O2 Flow Rate FiO2 08/04/25 08:32 108 18 99 Room Air 08/04/25 08:32 108 18 105/73 (84) 100 08/04/25 07:56 97 08/04/25 07:48 97.3 100 16 142/88 99 97.3 08/04/25 07:48 97 Departure 1 Departure Time of Disposition: 08:22 Impression: Primary Impression: Chest pain of unknown etiology Additional Impressions: HTN (hypertension) Qualified Codes: I10 - Essential (primary) hypertension Uncontrolled diabetes mellitus Qualified Codes: E13.65 - Other specified diabetes mellitus with hyperglycemia Disposition: 09 ADMITTED INPATIENT Admit to: Med Surg Condition: Guarded Critical Care Note Critical Care Time?: Yes (90 min-critical care time only) Stability Stability form required: No Heart Score Heart Score: Heart Score Response (Comments) Value History Slightly Suspicious 0 EKG Normal 0 Age <45 0 Risk Factors >3 or Hx ASHD 2 Troponin Normal limit 0 Total 2 I personally scribed for GUALBERTO LONDON MD ([email or web address]) on 08/04/25 at 07:56. Electronically submitted by Isra Duffy ([email or web address]). GUALBERTO LONDON MD Aug 04, 2025 07:56
[2025-08-04] MEDS: SODIUM CHLORIDE 0.9% 1,000 ML IV ONE (08:25)
[2025-08-04 08:33] LABS: Chloride 102 mmol/L (98-107); Potassium 4.2 mmol/L (3.5-5.1)
[2025-08-04 08:34] LABS: Calcium 9.3 mg/dL (8.7-10.4); Carbon Dioxide 27 mmol/L (20-31)
[2025-08-04 08:39] LABS: BUN/Creatinine Ratio 8.9 (10.0-20.0); Blood Urea Nitrogen 11 mg/dL (9-23)
[2025-08-04 08:41] LABS: Glucose 248 mg/dL (74-106)
[2025-08-04 08:42] LABS: Anion Gap 8 (5-15); Sodium 137 mmol/L (136-145)
[2025-08-04 08:51] LABS: Urine Protein, UAD TRACE (Negative)
[2025-08-04] MEDS: ENOXAPARIN SOD 80 MG/0.8ML SYRINGE SC ONE (09:15)
[2025-08-04] MEDS: IOHEXOL 350 MG/ML 100ML IJ ONE (09:20)
[2025-08-04 09:35] LABS: Hemoglobin 13.2 g/dL (12.2-16.2); Nucleated Red Blood Cells % 0.1 %
[2025-08-04 09:37] LABS: Hematocrit 39.5 % (36.0-46.0); Mean Corpuscular Hemoglobin 25.8 pg (28.0-32.0); Mean Corpuscular Volume 77.3 fL (80.0-100.0)
--- NOTE | 2025-08-04 10:03 | DVH ---
INDICATION: pe TECHNIQUE: Serial axial images from the thoracic inlet to the domes of the diaphragm were obtained a fter administration of 100 mL of Omnipaque 350 intravenously using the CTA PE protocol. Coronal and s agittal images were reconstructed. MIP reformatted images were obtained and evaluated in the coronal and sagittal planes. Dose lowering techniques have been used including automated exposure control and adjustment of mA and /or kv according to patient size. Comparison: XY CHEST PORTABLE on DOS: 01/26/25, XY CHEST PORTABLE on DOS: 09/08/24, CT CT ANGIO CHEST C ONTRAST on DOS: 09/06/24 FINDINGS: Pulmonary vasculature: No filling defect to suggest pulmonary emboli. Lungs: Normal Hilar, mediastinal and axillary lymph nodes: No enlarged lymph nodes Aorta: Normal in size. Heart: Normal. Pleura: No pleural effusion Osseous structures: Normal Visualized portion of the abdomen: Grossly unremarkable. DLP is 316.51 mGy-cm. CTDI vol is 8.77 mGy. IMPRESSION: 1. No evidence of pulmonary embolism.
[2025-08-04] MEDS ORDERED: MORPHINE SULFATE 4 MG/ML SYR/VIAL IV PRN (11:00)
[2025-08-04] MEDS ORDERED: DEXTROSE (50%) 50ML SYRG IV PRN (11:00)
[2025-08-04] MEDS ORDERED: MORPHINE SULFATE INJ 2 MG/ml SYRG IV PRN (11:00)
[2025-08-04] MEDS ORDERED: ONDANSETRON HCL 4 MG/2 ML VIAL IV PRN (11:00)
[2025-08-04] MEDS ORDERED: NITROGLYCERIN 0.4 MG SL TAB SL PRN ×2 (11:00)
--- NOTE | 2025-08-04 11:03 | DVHHP2 ---
History of Present Illness Reason for Visit: Chest pain History of Present Illness Jacquelyn Muhammad is a 19-year-old female with diabetes, hypertension, and tonsillectomy who presents to the ED with chest pain that began 4 days ago. Patient reports that the pain has been worsening over the last day, reports that her pain is 6/10 sharp and constant. She reports that moving makes it worse. 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 Patient also reports that she is compliant with her medications. Patient denies any recent travels, recent ingestion of spoiled food, recent sick contacts, recent trauma or injury, shortness of breath, fever, chills,, weakness, dizziness, abdominal pain, nausea, vomiting, diarrhea, or urinary symp toms. Cardiovascular: HTN Endocrine: Diabetes Past Surgical History: Tonsillectomy Family History: Hypertension, Other (Mom with hypertension) Smoke: No ALCOHOL: none Lives: with Family Domestic Violence: Neg Review of Systems Cardiovascular: Chest Pain Allergies: Coded Allergies: Cephalexin (Verified Allergy, Unknown, 08/23/24) Exam Vital Signs Vital Signs Date Time Temp Pulse Resp B/P (MAP) Pulse Ox O2 Delivery O2 Flow Rate FiO2 08/04/25 08:54 76 08/04/25 08:32 18 99 Room Air 08/04/25 08:32 105/73 (84) 08/04/25 07:48 97.3 97.3 General Appearance: Alert, Oriented X3, Cooperative, No acute distress HEENT: Atraumatic, PERRLA, EOMI, Mucous membr. moist/pink Respiratory: Clear to auscultation, Normal air movement Cardiovascular: Normal S1, Normal S2 Abdominal: Normal bowel sounds, Soft Extremities: No clubbing, No cyanosis Skin: No significant lesion Neuro: Normal gait, Normal speech, Strength at 5/5 X4 ext, Normal tone, Sensation intact Psych/Mental Status: Mental status NL, Mood NL Labs/Xrays Labs Test 08/04/25 08:41 08/04/25 07:58 Range/Units Urine Color Light-yellow Yellow Urine Clarity Clear Clear Urine pH 6.0 5.0-9.0 Urine Specific [place] 1.019 1.001-1.035 Urine Protein Trace H Negative Urine Ketones Negative Negative Urine Blood Negative Negative /uL Urine Nitrite Negative Negative Urine Bilirubin Negative Negative Urine Urobilinogen Normal Negative mg/dL Urine Leukocyte Esterase Negative Negative /uL Urine RBC 4 0 - 4 /hpf Urine Microscopic WBC 2 0-5 /HPF Urine Squamous Epithelial Cells Few <5 /hpf Urine Bacteria Few H None Seen /hpf Urine Glucose 4+ H Normal mg/dL White Blood Count 5.7 4.4-10.8 10^3/uL Red Blood Count 5.11 4.0-5.20 10^6/uL Hemoglobin 13.2 12.2-16.2 g/dL Hematocrit 39.5 36.0-46.0 % Mean Corpuscular Volume 77.3 L 80.0-100.0 fL Mean Corpuscular Hemoglobin 25.8 L 28.0-32.0 pg Mean Corpuscular Hemoglobin Concent 33.4 32.0-36.0 g/dL Red Cell Distribution Width 14.7 H 11.8-14.3 % Platelet Count 312 140-450 10^3/uL Mean Platelet Volume 8.2 6.9-10.8 fL Neutrophils (%) (Auto) 71.9 37.0-80.0 % Lymphocytes (%) (Auto) 22.7 10.0-50.0 % Monocytes (%) (Auto) 4.3 0.0-12.0 % Eosinophils (%) (Auto) 0.6 0.0-7.0 % Basophils (%) (Auto) 0.5 0.0-2.0 % Neutrophils # (Auto) 4.1 1.6-8.6 10 ^3/uL Lymphocytes # (Auto) 1.3 0.4-5.4 10 ^3/uL Monocytes # (Auto) 0.2 0-1.3 10 ^3/uL Eosinophils # (Auto) 0 0-0.8 10 ^3/uL Basophils # (Auto) 0 0-0.2 10 ^3/uL Nucleated Red Blood Cells 0.1 % D-Dimer, Quantitative 2.49 H 0.0-0.49 mg/L FEU Sodium Level 137 136-145 mmol/L Potassium Level 4.2 3.5-5.1 mmol/L Chloride Level 102 98-107 mmol/L Carbon Dioxide Level 27 20-31 mmol/L Anion Gap 8 5-15 Blood Urea Nitrogen 11 9-23 mg/dL Creatinine 1.24 H 0.550-1.02 mg/dL Glomerular Filtration Rate Calc 64 >90 mL/min BUN/Creatinine Ratio 8.9 L 10.0-20.0 Serum Glucose 248 H 74-106 mg/dL Calcium Level 9.3 8.7-10.4 mg/dL Troponin I High Sensitivity < 3 L </=34 ng/L CLINICAL HISTORY: r/o dvt TECHNIQUE: Color and duplex doppler imagine of the bilateral lower extremity veins was performed. Vessel compression and augmentation if possible was also performed. COMPARISON: None FINDINGS: Right Lower Extremity: Right common femoral vein: Normal compressibility and flow. Right superficial femoral vein: Normal compressibility and flow. Right popliteal vein: Normal compressibility and flow. Left Lower Extremity: Left common femoral vein: Normal compressibility and flow. Left superficial femoral vein: Normal compressibility and flow. Left popliteal vein: Normal compressibility and flow. IMPRESSION: NO SONOGRAPHIC EVIDENCE FOR DEEP VENOUS THROMBOSIS IN THE BILATERAL LOWER EXTREMITY VEINS. INDICATION: pe TECHNIQUE: Serial axial images from the thoracic inlet to the domes of the diaphragm were obtained after administration of 100 mL of Omnipaque 350 intravenously using the CTA PE protocol. Coronal and sagittal images were reconstructed. MIP reformatted images were obtained and evaluated in the coronal and sagittal planes. Dose lowering techniques have been used including automated exposure control and adjustment of mA and/or kv according to patient size. Comparison: XY CHEST PORTABLE on DOS: 01/26/25, XY CHEST PORTABLE on DOS: 09/08/24, CT CT ANGIO CHEST CONTRAST on DOS: 09/06/24 FINDINGS: Pulmonary vasculature: No filling defect to suggest pulmonary emboli. Lungs: Normal Hilar, mediastinal and axillary lymph nodes: No enlarged lymph nodes Aorta: Normal in size. Heart: Normal. Pleura: No pleural effusion Osseous structures: Normal Visualized portion of the abdomen: Grossly unremarkable. DLP is 316.51 mGy-cm. CTDI vol is 8.77 mGy. IMPRESSION: 1. No evidence of pulmonary embolism. SEPSIS Sepsis Screen Date sepsis recognized/suspect: Aug 04, 2025 Time Sepsis recognized/suspect: 0752 Recent Procedure: No On Antibiotic Therapy: No Respiratory Rate >20: No Heart Rate >90: Yes Temp<36 C (96.8 F) or >38.3 C: No SBP <90 or MAP <65 mmHG: No New Acute Mental Status Change: No Is the patient on CPAP, BIPAP,: No Physician Orders Electrocardigram (08/04/25 07:47) Ct Angio Chest Contrast (08/04/25 09:12) Vital Signs Date Time Temp Pulse Resp B/P (MAP) Pulse Ox O2 Delivery O2 Flow Rate FiO2 08/04/25 08:54 76 08/04/25 08:32 108 18 99 Room Air 08/04/25 08:32 108 18 105/73 (84) 100 08/04/25 07:56 97 08/04/25 07:48 97.3 100 16 142/88 99 97.3 08/04/25 07:48 97 Laboratory Tests Test 08/04/25 07:58 White Blood Count 5.7 10^3/uL (4.4-10.8) Assessment/Plan Assessment/Plan Assessment Chest pain Elevated D-dimer PE ruled out JUAN MIGUEL likely prerenal History of diabetes History of hypertension History of tonsillectomy Plan Admit to tele Antiemetics Pain management Aspirin + statin NS 1 L given ED CTA chest noted UA Troponin noted EKG Hemoglobin A1c ISS and Accu-Cheks Lactic level Blood cultures CRP Magnesium Bilateral lower extremity venous ultrasound CK ACS workup Echo ordered Last echo on 09/07/2024 EF 65-70% Diet Home medications reconciled DVT prophylaxis-Lovenox PUD prophylaxis-not indicated no history of GERD or GI bleed Discussed plan of care with patient and nurse [id number] Preventive counseling healthy eating habits, physical activity, and regular checkups Plan discussed with: Patient Date of Service: Aug 04, 2025 Billing Provider: ANTONELLA CRUZ Common Visit Codes: 96351-GNRGSLH INP/OBS CARE (HIGH) Secondary Visit Codes: 61831-[id number] COUNSELING IND ANTONELLA CRUZ Aug 04, 2025 11:03
[2025-08-04] MEDS: InsuLIN REG 1unit/0.01ml Soln (100units/ml) SC SCH (11:30)
[2025-08-04] MEDS: ACCU-CHEK COMFORT CURVE STRIP VI SCH (11:42)
[2025-08-04] MEDS: MAGNESIUM SULFATE 1GM/100ML 100 ML IV ONE (11:44)
--- NOTE | 2025-08-04 11:50 | DVH ---
CLINICAL HISTORY: r/o dvt TECHNIQUE: Color and duplex doppler imagine of the bilateral lower extremity veins was performed. Ves rocky compression and augmentation if possible was also performed. COMPARISON: None FINDINGS: Right Lower Extremity: Right common femoral vein: Normal compressibility and flow. Right superficial femoral vein: Normal compressibility and flow. Right popliteal vein: Normal compressibility and flow. Left Lower Extremity: Left common femoral vein: Normal compressibility and flow. Left superficial femoral vein: Normal compressibility and flow. Left popliteal vein: Normal compressibility and flow. IMPRESSION: NO SONOGRAPHIC EVIDENCE FOR DEEP VENOUS THROMBOSIS IN THE BILATERAL LOWER EXTREMITY VEINS.
[2025-08-04 17:20] VITALS: BP 118/77; PULSE 90; RESP 16; TEMP 97.9; O2SAT 100
[2025-08-04 18:10] VITALS: PULSE 73; RESP 16
[2025-08-04 19:11] LABS: Amphetamine Screen, Urine Neg (NEGATIVE); Barbiturate Scree,Urine Neg (NEGATIVE); Benzodiazephine Screen, Urine Neg (NEGATIVE); Cannabinoid Screen, Urine Neg (NEGATIVE); Cocaine Screen, Urine Neg (NEGATIVE); Opiate Scree,Urine Neg (NEGATIVE); Phencyclidine Screen, Urine Neg (NEGATIVE)
--- NOTE | 2025-08-04 20:11 | ECG ---
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
[2025-08-04] MEDS: ACETAMINOPHEN 325 MG TAB PO PRN (20:33)
[2025-08-04 21:00] VITALS: BP 115/64; PULSE 73; RESP 16; TEMP 98.2; O2SAT 99
[2025-08-04] MEDS: ATORVASTATIN 20 MG TAB PO SCH (21:47)
[2025-08-04] MEDS: LABETALOL HCL 200 MG TAB PO SCH (21:50)
[2025-08-05] VITALS (7 sets, daily range): BP systolic 99–127; BP diastolic 61–76; PULSE 77–92; RESP 16–20; TEMP 97.4–98; O2SAT 96–100
--- NOTE | 2025-08-05 07:00 | ECG ---
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
[2025-08-05 08:53] LABS: Hematocrit 37.3 % (36.0-46.0); Hemoglobin 12.6 g/dL (12.2-16.2); Mean Corpuscular Hemoglobin 25.9 pg (28.0-32.0); Mean Corpuscular Volume 76.9 fL (80.0-100.0); Nucleated Red Blood Cells % 0.1 %
[2025-08-05 09:00] LABS: Chloride 103 mmol/L (98-107); Potassium 4.1 mmol/L (3.5-5.1); Sodium 139 mmol/L (136-145)
[2025-08-05 09:01] LABS: Anion Gap 8 (5-15); Calcium 9.0 mg/dL (8.7-10.4); Carbon Dioxide 28 mmol/L (20-31)
[2025-08-05 09:06] LABS: BUN/Creatinine Ratio 9.9 (10.0-20.0); Blood Urea Nitrogen 11 mg/dL (9-23); Glucose 193 mg/dL (74-106); Triglycerides 78 mg/dL (< 150)
[2025-08-05 09:07] LABS: Magnesium 1.8 mg/dL (1.6-2.6)
[2025-08-05 09:08] LABS: Cholesterol 173 mg/dL (< 200); HDL Cholesterol 42 mg/dL (40-59)
[2025-08-05] MEDS: ENOXAPARIN SOD 40 MG/0.4 ML SYRINGE SC SCH (10:00)
--- NOTE | 2025-08-05 15:04 | DVHDS2 ---
Discharge Summary Date of Admission Aug 04, 2025 at 10:54 Date of Discharge: Aug 05, 2025 Admitting Diagnosis Chest pain Labs/Diagnostic Data: Laboratory Results Test 08/05/25 11:09 08/05/25 08:28 08/04/25 11:15 08/04/25 08:41 POC Glucose 136 mg/dl (70-106) White Blood Count 5.8 10^3/uL (4.4-10.8) Red Blood Count 4.85 10^6/uL (4.0-5.20) Hemoglobin 12.6 g/dL (12.2-16.2) Hematocrit 37.3 % (36.0-46.0) Mean Corpuscular Volume 76.9 fL (80.0-100.0) Mean Corpuscular Hemoglobin 25.9 pg (28.0-32.0) Mean Corpuscular Hemoglobin Concent 33.7 g/dL (32.0-36.0) Red Cell Distribution Width 14.6 % (11.8-14.3) Platelet Count 278 10^3/uL (140-450) Mean Platelet Volume 7.8 fL (6.9-10.8) Neutrophils (%) (Auto) 68.3 % (37.0-80.0) Lymphocytes (%) (Auto) 23.8 % (10.0-50.0) Monocytes (%) (Auto) 6.4 % (0.0-12.0) Eosinophils (%) (Auto) 1.1 % (0.0-7.0) Basophils (%) (Auto) 0.4 % (0.0-2.0) Neutrophils # (Auto) 4.0 10 ^3/uL (1.6-8.6) Lymphocytes # (Auto) 1.4 10 ^3/uL (0.4-5.4) Monocytes # (Auto) 0.4 10 ^3/uL (0-1.3) Eosinophils # (Auto) 0.1 10 ^3/uL (0-0.8) Basophils # (Auto) 0 10 ^3/uL (0-0.2) Nucleated Red Blood Cells 0.1 % Sodium Level 139 mmol/L (136-145) Potassium Level 4.1 mmol/L (3.5-5.1) Chloride Level 103 mmol/L (98-107) Carbon Dioxide Level 28 mmol/L (20-31) Anion Gap 8 (5-15) Blood Urea Nitrogen 11 mg/dL (9-23) Creatinine 1.11 mg/dL (0.550-1.02) Glomerular Filtration Rate Calc 73 mL/min (>90) BUN/Creatinine Ratio 9.9 (10.0-20.0) Serum Glucose 193 mg/dL (74-106) Calcium Level 9.0 mg/dL (8.7-10.4) Magnesium Level 1.8 mg/dL (1.6-2.6) Troponin I High Sensitivity < 3 ng/L (</=34) Triglycerides Level 78 mg/dL (< 150) Cholesterol Level 173 mg/dL (< 200) LDL Cholesterol 119 mg/dL (< 100) HDL Cholesterol 42 mg/dL (40-59) Hemoglobin A1c 9.0 % A1C (<5.7) Lactic Acid Level 1.2 mmol/L (0.4-2.0) Creatine Kinase 55 U/L (34-145) C-Reactive Protein High Sensitivity 0.17 mg/dL (<1.0) Thyroid Stimulating Hormone (TSH) 0.57 uIU/mL (0.55-4.78) Free Thyroxine (T4) Calculated 1.54 ng/dL (0.89-1.76) Urine Color Light-yellow (Yellow) Urine Clarity Clear (Clear) Urine pH 6.0 (5.0-9.0) Urine Specific [place] 1.019 (1.001-1.035) Urine Protein Trace (Negative) Urine Ketones Negative (Negative) Urine Blood Negative /uL (Negative) Urine Nitrite Negative (Negative) Urine Bilirubin Negative (Negative) Urine Urobilinogen Normal mg/dL (Negative) Urine Leukocyte Esterase Negative /uL (Negative) Urine RBC 4 /hpf (0 - 4) Urine Microscopic WBC 2 /HPF (0-5) Urine Squamous Epithelial Cells Few /hpf (<5) Urine Bacteria Few /hpf (None Seen) Urine Glucose 4+ mg/dL (Normal) Urine Opiates Screen Neg (NEGATIVE) Urine Fentanyl Screen Neg (NEGATIVE) Urine Barbiturates Screen Neg (NEGATIVE) Urine Phencyclidine Screen Neg (NEGATIVE) Urine Amphetamines Screen Neg (NEGATIVE) Urine Benzodiazepines Screen Neg (NEGATIVE) Urine Cocaine Screen Neg (NEGATIVE) Urine Cannabinoids Screen Neg (NEGATIVE) Test 08/04/25 07:58 D-Dimer, Quantitative 2.49 mg/L FEU (0.0-0.49) Other Laboratory Tests 08/05/25 08:28 Brief Hx & Hospital Course: History of Present Illness Jacquelyn Muhammad is a 19-year-old female with diabetes, hypertension, and tonsillectomy who presents to the ED with chest pain that began 4 days ago. Patient reports that the pain has been worsening over the last day, reports that her pain is 6/10 sharp and constant. She reports that moving makes it worse. 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 Patient also reports that she is compliant with her medications. Patient denies any recent travels, recent ingestion of spoiled food, recent sick contacts, recent trauma or injury, shortness of breath, fever, chills,, weakness, dizziness, abdominal pain, nausea, vomiting, diarrhea, or urinary symptoms. Course of hospitalization: CT angiogram of the chest negative for PE. DVT study negative for DVT. Troponins negative. EKG within normal limits. Chest pain probably secondary to costochondritis. Patient will be discharged home and is instructed to follow up with her PCP in 1-2 weeks Physical examination General: Alert and Oriented x3. No acute distress. Well-nourished. Eyes: EOMI. Anicteric. HENT: Moist mucous membranes. Lungs: Clear to auscultation bilaterally. No accessory muscle use. Cardiovascular: Regular rate and rhythm. No murmur. No JVD. Abdomen: Soft, non-tender and non-distended. No palpable masses. Extremities: No edema. Non-tender. Skin: No rashes or lesions. Warm. Neurologic: No focal neurological deficits. CN II-XII grossly intact, but not individually tested. Psychiatric: Cooperative. Appropriate mood and affect. Total time spent with patient discussing and formulating plan of care: 35 minutes. This medical document was created using an electronic medical record system with [employer] system. Although this document has been carefully reviewed, there may still be some phonetic and typographical errors. These areas are purely typographical due to imperfections of the software programs, and do not reflect any compromise in the patient's medical care. Condition at Discharge: Fair Final Diagnosis/Problems List Chest pain probabaly secondary to Costochondritis Discharge Disposition: Home Discharge Instruct/Medications Diet: Regular Activity: No Restrictions, As Tolerated Follow Up/Referral: Follow up with established PCP appointment Medications: [id number] Tylenol or Motrin for chest pain Scheduled Amlodipine Besylate (Amlodipine Besylate), 1 TAB PO DAILY Labetalol HCl (Labetalol HCl), 300 MG PO Q12HR Nifedipine (Nifedipine Er), 30 MG PO DAILY Scheduled PRN Clonidine Hydrochloride (Clonidine Hcl), 1 TAB PO Q12HP PRN 36 Discharge Statement: "Patient was advised to return to the ER or call 911 if any headaches, dizziness, shortness of breath, chest pain, abdominal pain, bleeding, fevers, or worsening of medical condition. Patient was counseled about treatment plan, medications, possible side effects, patientverbalized understanding. All questions were answered to the best of my ability. This discharge took greater then 30 minutes in planning, reviewing documentation, counseling the patient, and discussing with other team members." ASSESSMENT ASSESSMENT Assessment Chest pain probabaly secondary to Costochondritis Date of Service: Aug 05, 2025 Billing Provider: AMEE LICONA NP Common Visit Codes: 15404-LZR/OBS DISCH DAY >30min AMEE LICONA NP Aug 05, 2025 15:04
--- NOTE | 2025-08-06 14:14 | DVHSR ---
APPROVED REPORT EXAM: Two-dimensional and M-mode echocardiogram with Doppler and color Doppler. Blood Pressure: 99/67 mmHg INDICATION Chest Pain RISK FACTORS Height: 5'7", Weight: 159 DIMENSIONS LVDd4.5 (3.8-5.7cm)LA (2D)3.0 (1.9-4.0cm)Aortic Root2.7 (2.0-3.7cm) LVDs3.0 (2.5-4.0cm)LA (MM) (1.9-4.0cm)Aortic Cusp Exc1.8 (1.5-2.0cm) EF (%) 63.0 (55-70%)Rt. Atrium3.6 (1.9-4.0cm)Asc. Aorta2.2 cm IVSd0.9 (0.7-1.1cm)RV (D)3.1 (1.8-2.4cm) PWd0.8 (0.7-1.1cm) Mitral Valve MitralMitral Stenosis E wave0.68m/sMV Mean GR.mmHg A wave0.47m/sMV Peak GR.mmHg E/A ratio1.42D MVAcm2 DECEL [id number] 1/2 [place] Aortic Valve Aortic ValveAortic Stenosis V10.79m/[place]and Mean GR.3mmHg V21.09m/[place] Peak GR.5mmHg LVOT Diameter2.0 (1.8-2.4cm)Doppler AVA2.28cm2 Pulmonic Valve V20.87m/s Conclusion Technically good study. Sinus rhythm. Normal chamber sizes. Valves are normal. EF is normal at 60% with normal RV function. Dopplers normal. No pericardial effusion masses or vegetations discernible.
== END 2025-08-05 18:11 | disposition home or self-care (01) | DRG 203 ==
LOC: ER 07:41 → OVERFLOW 10:54 → TELE-WESTW 08-05 03:30
PROVIDERS: ATTEND Nurse Practitioner Acute Care
DX: M94.0 Chondrocostal junction syndrome [Tietze] (principal); N17.9 Acute kidney failure, unspecified; I10 Essential (primary) hypertension; E11.9 Type 2 diabetes mellitus without complications; Z88.1 Allergy status to other antibiotic agents; Z82.49 Family history of ischemic heart disease and other diseases of the circulatory system; Z79.899 Other long term (current) drug therapy
CPT/HCPCS: 36415; 71275; 80048; 80061; 80307; 81001; 82550; 82962; 83036; 83605; 83735; 84439; 84443; 84484; 85025; 85379; 86141; 87040; 93005; 93306; 93970; 96365; 99291; 99292; G0378